=== PATIENT | female | born 1940 | race Caucasian/White ===

== ENCOUNTER 2019-07-22 20:17 | Emergency (ER) | payer MEDICARE ==
[2019-07-22 21:13] LABS: Absolute Neutrophil Ct (ANC) 6.02 (1.4-6.9); BASOPHIL % 0.6 % (0.0-0.4); Basophil (Absolute #) 0.05 (0-0.4); Eosinophil % 3.5 % (0.00-5.0); Eosinophil (Absolute #) 0.28 (0-0.5); Hematocrit 40.8 % (35-47); Hemoglobin 12.7 gm/dl (12.0-16.0); Lymphocyte (Absolute #) 1.11 (1.0-4.6); Mean Cell Volume 96.5 fl (78-100); Mean Corpuscular Hgb Concent. 31.1 g/dl (32-36); Mean Platelet Volume 10.5 fl (6-9.5); Monocyte (Absolute #) 0.45 (0.0-1.3); Monocytes % 5.7 % (0.0-12.0); Neutrophil % 76.2 % (36.0-66.0); Platelet Count 191 K/mm3 (150-450); Red Blood Count 4.23 M/mm3 (4.1-5.4); Red Cell Distribution Width 15.3 % (11.5-14.0); White Blood Count 7.9 K/mm3 (4.0-10.5)
[2019-07-22 21:20] LABS: INR 3.25 (0.8-3.0); PROTIME 37.6 SECONDS (9.95-12.35)
[2019-07-22 21:23] LABS: PTT 47.6 SECONDS (25.3-37.0)
[2019-07-22 21:25] LABS: ALBUMIN 4.1 g/dL (3.5-5.0); ALKALINE PHOSPHATASE 92 U/L (38-126); AMYLASE 78 U/L (30-110); ANION GAP 11.8 MEQ/L (5-15); BLOOD UREA NITROGEN 25 mg/dL (7-17); CHLORIDE 102 mmol/L (98-107); Calcium 8.9 mg/dL (8.4-10.2); Carbon Dioxide 32 mmol/L (22-30); Creatinine 1 0.83 mg/dL (0.52-1.04); Glucose 171 mg/dL (74-106); LIPASE 88 U/L (23-300); Potassium 4.8 mmol/L (3.5-5.1); SGOT/AST 50 U/L (14-36); SGPT/ALT 42 U/L (0-35); SODIUM 140 mmol/L (137-145); Total Protein 7.5 g/dL (6.3-8.2)
[2019-07-22] MEDS ORDERED: BACIGUENT PACKET ONE (22:39)
[2019-07-22] MEDS: BACIGUENT PACKET TP ONE (22:41)
--- NOTE | 2019-07-22 22:43 | ERPHSYRPT ---
- History of Present Illness Time Seen by Provider: 07/22/19 20:45 Source: patient Exam Limitations: no limitations Patient Subjective Stated Complaint: pt states she lost her balance and fell. states she hurt her rt arm, and shoulder. ans skinned her rt forearm Triage Nursing Assessment: pt alert and oriented, answers questions approp. pt ambulate from wheelchair to stretcher with cane and assist of 1. slow gait noted. respirations nonlabored with lungs cta. pupils equal and reacitve. bilat upper and lower strength equal. skin tear to rt arm with hematoma. Occurred: just prior to arrival Reason for Fall: lost balance Loss of Consciousness: no loss of consciousness Quality: throbbing Severity of Pain-Max: mild Severity of Pain-Current: mild Modifying Factors: Improves With: nothing Associated Symptoms (Fall): denies symptoms Allergies/Adverse Reactions: levofloxacin [From Levaquin] Allergy (Verified 07/22/19 22:40) Itching Home Medications: Unobtainable 07/22/19 [History] Hx Tetanus, Diphtheria Vaccination/Date Given: No (unknown) Hx Influenza Vaccination/Date Given: Yes Hx Pneumococcal Vaccination/Date Given: Yes Immunizations Up to Date: No - Review of Systems Constitutional: No Fever, No Chills Eyes: No Symptoms Ears, Nose, & Throat: No Symptoms Respiratory: No Cough, No Dyspnea Cardiac: No Chest Pain, No Edema, No Syncope Abdominal/Gastrointestinal: No Abdominal Pain, No Nausea, No Vomiting, No Diarrhea Genitourinary Symptoms: No Dysuria Musculoskeletal: Neck Pain, Fall, Injury Skin: Other (skin tear), No Rash Neurological: No Dizziness, No Focal Weakness, No Sensory Changes Psychological: No Symptoms Endocrine: No Symptoms All Other Systems: Reviewed and Negative - Past Medical History Pertinent Past Medical History: Yes Neurological History: No Pertinent History Cardiac History: Hypertension Respiratory History: Asthma, COPD, Emphysema, Sleep Apnea Endocrine Medical History: Diabetes Type II, Other Musculoskeletal History: Fractures, Osteoarthritis Other Medical History: open heart surgery, valve replacement, thyroid removed. - Past Surgical History Past Surgical History: Yes Cardiac: Valve Replacement Gastrointestinal: Cholecystectomy, Other Musculoskeletal: Orthopedic Surgery Other Surgical History: hx gastric bypass, bilat tka, lt hip fx - Social History Smoking Status: Never smoker Exposure to second hand smoke: No Drug Use: none Patient Lives Alone: No - Nursing Vital Signs Nursing Vital Signs: Initial Vital Signs Pulse Rate 88 11/02/19 20:29 Respiratory Rate 18 07/22/19 20:29 Blood Pressure 150/89 07/22/19 20:29 O2 Sat by Pulse Oximetry 97 07/22/19 20:29 Pain Scale Pain Intensity 8 - Carmen Coma Score Best Eye Response ([place]): (4) open spontaneously Best Verbal Response ([place]): (5) oriented Best Motor Response ([place]): (6) obeys commands [place] Total: 15 - Physical Exam General Appearance: no apparent distress, alert Head Injury: no evidence of injury Eye Exam: PERRL/EOMI ENT Exam: airway nml Neck Exam: tenderness Respiratory/Chest Exam: normal breath sounds, No chest tenderness, No respiratory distress Cardiovascular Exam: normal heart sounds, regular rate/rhythm Gastrointestinal Exam: soft, No tenderness, No distention, No guarding, No ecchymosis Back Exam: normal inspection, No vertebral tenderness Extremity Exam: normal range of motion, pelvis stable, swelling, tenderness, other (large skin tear r forearm), No deformities SpO2: 97 - Radiology Exams Right Humerus X-ray Interpretation: Interpreted by me, Reviewed by me, Negative, No Fracture, No Subluxation Right Shoulder X-ray Interpretation: Interpreted by me (spine), No Fracture Right Forearm X-ray Interpretation: Interpreted by me, Negative C-Spine X-ray Interpretation: Interpreted by me, Negative Ordered Tests: Active Orders 24 hr Category Date Time Status Wound Care STAT Care 07/22/19 22:39 Active CERVICAL SPINE (2 OR 3 VIEW) Stat Exams 07/22/19 21:56 Taken FOREARM Stat Exams 07/22/19 21:57 Taken SHOULDER Stat Exams 07/22/19 21:56 Taken AMYLASE Stat Lab 07/22/19 21:10 Completed CBC W DIFF Stat Lab 07/22/19 21:10 Completed CMP Stat Lab 07/22/19 21:10 Completed LIPASE Stat Lab 07/22/19 21:10 Completed PROTIME WITH INR Stat Lab 07/22/19 21:10 Completed PTT Stat Lab 07/22/19 21:10 Completed Medication Summary Discontinued Medications Generic Name Dose Route Start Last Admin Trade Name Freq PRN Reason Stop Dose Admin Bacitracin Zinc 0.9 gm 07/22/19 22:39 07/22/19 22:41 Baciguent Packet TP 07/22/19 22:40 0.9 gm STAT ONE Administration Bacitracin Zinc Confirm 07/22/19 22:39 Baciguent Packet Administered 07/22/19 22:40 Dose 1 gm .ROUTE .STK-MED ONE Lab/Rad Data: Laboratory Result Diagrams 07/22/19 21:10 07/22/19 21:10 Laboratory Results 07/22/19 07/22/19 07/22/19 Range/Units 21:10 21:10 21:10 WBC 7.9 (4.0-10.5) K/mm3 RBC 4.23 (4.1-5.4) M/mm3 Hgb 12.7 (12.0-16.0) gm/dl Hct 40.8 (35-47) % MCV 96.5 (78-100) fl MCH 30.0 (26-32) pg MCHC 31.1 L (32-36) g/dl RDW 15.3 H (11.5-14.0) % Plt Count 191 (150-450) K/mm3 MPV 10.5 H (6-9.5) fl Gran % 76.2 H (36.0-66.0) % Eos # (Auto) 0.28 (0-0.5) Absolute Lymphs (auto) 1.11 (1.0-4.6) Absolute Monos (auto) 0.45 (0.0-1.3) Lymphocytes % 14.0 L (24.0-44.0) % Monocytes % 5.7 (0.0-12.0) % Eosinophils % 3.5 (0.00-5.0) % Basophils % 0.6 (0.0-0.4) % Absolute Granulocytes 6.02 (1.4-6.9) Basophils # 0.05 (0-0.4) PT 37.6 H (9.95-12.35) SECONDS INR 3.25 H (0.8-3.0) APTT 47.6 H (25.3-37.0) SECONDS Sodium 140 (137-145) mmol/L Potassium 4.8 (3.5-5.1) mmol/L Chloride 102 (98-107) mmol/L Carbon Dioxide 32 H (22-30) mmol/L Anion Gap 11.8 (5-15) MEQ/L BUN 25 H (7-17) mg/dL Creatinine 0.83 (0.52-1.04) mg/dL Estimated GFR > 60.0 ML/MIN Glucose 171 H (74-106) mg/dL Calcium 8.9 (8.4-10.2) mg/dL Total Bilirubin 0.50 (0.2-1.3) mg/dL AST 50 H (14-36) U/L ALT 42 H (0-35) U/L Alkaline Phosphatase 92 (38-126) U/L Serum Total Protein 7.5 (6.3-8.2) g/dL Albumin 4.1 (3.5-5.0) g/dL Amylase 78 (30-110) U/L Lipase 88 (23-300) U/L - Progress Progress: improved - Departure Departure Disposition: Home Clinical Impression: Fall Condition: Stable Critical Care Time: No Referrals: [facility] [Primary Care Provider] - Plan of Treatment: we will dispense some [place] for pain and amoxicillin for infection Prescriptions: Amoxicillin 500 mg PO TID 7 Days #30 capsule
[2019-07-22] MEDS ORDERED: NORCO 5/325 MG ONE (22:54)
[2019-07-22 22:57] VITALS: BP 156/86; PULSE 84; O2SAT 96
[2019-07-22] MEDS: NORCO 5/325 MG PO PRN (22:57)
--- NOTE | 2019-07-23 09:41 | XRAY ---
Indication: Pain following fall. Comparison: None 3 views of the cervical spine demonstrates cervical lordotic straightening, mild osteopenia, mild/moderate C4-C7 degenerative endplate spurring with disc space narrowing, CABG surgery, and partially visualized left AICD. No acute fracture/subluxation.
--- NOTE | 2019-07-23 09:43 | XRAY ---
Indication: Pain following fall. Comparison: None 3 views of the right shoulder demonstrates osteopenia, mild/moderate right shoulder degenerative arthropathy, multilevel cervical thoracic degenerative spondylosis, CABG surgery with cardiac valve stent, and partially visualized AICD leads. No acute fracture/dislocation.
--- NOTE | 2019-07-23 09:43 | XRAY ---
Indication: Pain following fall. Comparison: None 2 views of the right forearm demonstrates osteopenia, posterior soft tissue swelling, and heavy scattered vascular calcifications. No other bony, articular, or soft tissue abnormalities.
== END 2019-07-22 23:04 | disposition home or self-care (01) ==
LOC: ED 20:17
DX: S51.811A Laceration without foreign body of right forearm, initial encounter (principal); S40.021A Contusion of right upper arm, initial encounter; W01.0XXA Fall on same level from slipping, tripping and stumbling without subsequent striking against object, initial encounter; J44.9 Chronic obstructive pulmonary disease, unspecified; J45.909 Unspecified asthma, uncomplicated; I10 Essential (primary) hypertension; G47.30 Sleep apnea, unspecified; E11.9 Type 2 diabetes mellitus without complications; M19.90 Unspecified osteoarthritis, unspecified site
CPT/HCPCS: 36415; 72040; 73030; 73090; 80053; 82150; 83690; 85025; 85610; 85730; 99284; A9270-GY

== ENCOUNTER 2020-03-09 12:40 | Emergency (ER) | payer MEDICARE ==
--- NOTE | 2020-03-09 13:38 | ERPHSYRPT ---
- History of Present Illness Time Seen by Provider: 03/09/20 13:18 Patient Subjective Stated Complaint: pt to ER with complaints of fall out of bed this morning around 0900. pt states she fell on her R side, but her legs were still in the bed. pt states she landed on a wooden box step. complains of L shoulder,arm and L ribs. denies headache or LOC. Triage Nursing Assessment: pt arrives via wheelchair. pt needed assistance into bed, pt A&Ox3. pt with mulitple bruising. no distress noted. Physician History: 79 yo was trying to reach phone this morning while lying on the bed and accidantly fell down, bent her left upper extremity , and hit hit left chest wall against the card board box .no LOC/ headache/vomiting/numbness/tingling or new focal weakness. does have chronic left UE weakness which is not any worse than usual.she is c/o pain in the left ribs/shoulder /elbow/wrist with movements. Occurred: this morning Method of Injury: fell Quality: sharpness Severity of Pain-Max: moderate Severity of Pain-Current: moderate Extremities Pain Location: shoulder: left, arm: left, elbow: left, forearm: left, wrist: left, hand: left Modifying Factors: Improves With: immobilization, movement Associated Symptoms: chest discomfort, chest pain, No dyspnea, No fever, No short of breath Allergies/Adverse Reactions: levofloxacin [From Levaquin] Allergy (Verified 03/09/20 13:21) Itching Hx Tetanus, Diphtheria Vaccination/Date Given: Yes Hx Influenza Vaccination/Date Given: Yes Hx Pneumococcal Vaccination/Date Given: Yes Immunizations Up to Date: Yes Travel Risk - International Travel Have you traveled outside of the country in past 3 weeks: No - Coronavirus Screening Are you exhibiting any of the following symptoms?: No Close contact with a COVID-19 positive Pt in past 14-21 Days: No - Review of Systems Constitutional: No Symptoms Eyes: No Symptoms Ears, Nose, & Throat: No Symptoms Respiratory: No Symptoms Cardiac: No Symptoms Abdominal/Gastrointestinal: No Symptoms Genitourinary Symptoms: No Symptoms Musculoskeletal: Arthralgias, Injury, Joint Pain Skin: No Symptoms Neurological: No Symptoms Psychological: No Symptoms Endocrine: No Symptoms Hematologic/Lymphatic: No Symptoms Immunological/Allergic: No Symptoms - Past Medical History Pertinent Past Medical History: Yes Neurological History: No Pertinent History Cardiac History: Hypertension Respiratory History: Asthma, COPD, Emphysema, Sleep Apnea Endocrine Medical History: Diabetes Type II, Other Musculoskeletal History: Fractures, Osteoarthritis Other Medical History: open heart surgery, valve replacement, thyroid removed. - Past Surgical History Past Surgical History: Yes Cardiac: Valve Replacement Gastrointestinal: Cholecystectomy, Other Musculoskeletal: Orthopedic Surgery Other Surgical History: hx gastric bypass, bilat tka, lt hip fx - Social History Smoking Status: Never smoker Exposure to second hand smoke: No Drug Use: none Patient Lives Alone: No - Female History Hx Now: No - Nursing Vital Signs Nursing Vital Signs: Initial Vital Signs Temperature 97.7 F 03/09/20 13:12 Pulse Rate 78 03/09/20 13:12 Respiratory Rate 17 03/09/20 13:12 Blood Pressure 149/88 03/09/20 13:12 O2 Sat by Pulse Oximetry 96 03/09/20 13:12 Pain Scale Pain Intensity 10 - Physical Exam General Appearance: no apparent distress, alert Eyes, Ears, Nose, Throat Exam: normal ENT inspection, pharynx normal Neck Exam: normal inspection, non-tender, supple, full range of motion Cardiovascular/Respiratory Exam: normal breath sounds, regular rate/rhythm, rib tenderness (left mid to lower), No subcutaneous emphysema, No crepitus, No decreased breath sounds, No paradoxical movements Abdominal Exam: non-tender, soft, no organomegaly Back Exam: normal inspection, No CVA tenderness Shoulder Exam: bone tenderness (left), limited ROM, pain, soft tissue tenderness Elbow/Forearm Exam: bone tenderness, pain, soft tissue tenderness, swelling Wrist Exam: bone tenderness, limited ROM, pain, soft tissue tenderness, swelling Hand Exam: normal inspection Neuro/Tendon Exam: normal sensation, normal motor functions, normal tendon functions, responds to pain, no evidence tendon injury Mental Status Exam: alert, oriented x 3, cooperative Skin Exam: normal color, abrasion SpO2 Interpretation: normal SpO2: 96 O2 Delivery: Room Air - Course Nursing assessment & vital signs reviewed: Yes Ordered Tests: Active Orders 24 hr Category Date Time Status CERVICAL SPINE WO CONTRAST [CT] Stat Exams 03/09/20 13:38 Taken CHEST WITHOUT CONTRAST [CT] Stat Exams 03/09/20 13:39 Taken ELBOW (MINIMUM 3 VIEWS) Stat Exams 03/09/20 13:41 Taken HEAD WITHOUT CONTRAST [CT] Stat Exams 03/09/20 13:38 Taken SHOULDER Stat Exams 03/09/20 13:40 Taken WRIST (MIN 3 VIEWS) Stat Exams 03/09/20 13:40 Taken Medication Summary Discontinued Medications Generic Name Dose Route Start Last Admin Trade Name Loyd PRN Reason Stop Dose Admin Hydrocodone Bitart/Acetaminophen 1 tab 03/09/20 13:42 03/09/20 13:46 [place] 5/325 Mg PO 03/09/20 13:43 1 tab STAT ONE Administration Hydrocodone Bitart/Acetaminophen Confirm 03/09/20 13:45 [place] 5/325 Mg Administered 03/09/20 13:46 Dose 1 tab .ROUTE .STK-MED ONE - Progress Progress: improved, pain not gone completely, re-examined Progress Note: feeling better after oral pain med, r/o fx dislocation left UE. negative ct chest for pneumothorax but has left 7-9th ant nondisplaced rib fx . no difficulty breathing , will treat with oral pain meds. negative CT head/cervical spines. no acute neuro findings. i believe patient has contusions upper extremity and recommended taking tylenol for pain and outpatient follow up.discusses sx/sn of worsening needing return which she seems understanding. 03/09/20 15:42 Counseled pt/family regarding: diagnosis, need for follow-up, rad results - Departure Departure Disposition: Home Clinical Impression: Contusion of left upper extremity Qualifiers: Encounter type: initial encounter Qualified Code(s): S40.022A - Contusion of left upper arm, initial encounter Scalp contusion Qualifiers: Encounter type: initial encounter Qualified Code(s): S00.03XA - Contusion of scalp, initial encounter Fall Qualifiers: Encounter type: initial encounter Qualified Code(s): W19.XXXA - Unspecified fall, initial encounter Closed rib fracture Qualifiers: Encounter type: initial encounter Rib fracture type: multiple ribs Laterality: left Qualified Code(s): S22.42XA - Multiple fractures of ribs, left side, initial encounter for closed fracture Condition: Stable Critical Care Time: No Referrals: DOCTOR,NO FAMILY [Primary Care Provider] - RADHA BROWN [ACTIVE STAFF] - Follow Up with PCP/3 days LIBRA STALLWORTH NP [NON-STAFF PHY W/O PRIVILEGES] - Follow Up with PCP/3 days Instructions: Concussion, Adult (DC), Preventing Falls, Rib Fractures in Adults Additional Instructions: take norco as needed for pain. use cane or walker to avoid fall. deep breathing exercises. apply ice . follow up with pcp/ortho for re evaluation Prescriptions: Hydrocodone/APAP 5-325 Tab^^^ [[place] 5-325 Tablet^^^] 1 tab PO Q6HPRN PRN #10 tablet MDD 6 PRN Reason: Pain
[2020-03-09] MEDS ORDERED: NORCO 5/325 MG PO ONE ×2 (13:42→15:41)
[2020-03-09] MEDS ORDERED: NORCO 5/325 MG ONE ×2 (13:45→15:46)
[2020-03-09 16:25] VITALS: BP 138/74; PULSE 68; O2SAT 95
--- NOTE | 2020-03-09 17:52 | XRAY ---
Indication: Pain following fall. Comparison: None 3 view left shoulder demonstrates mild osteopenia, mild AC degenerative arthropathy, partially visualized left AICD, partially visualized cardiac valve replacement surgery, and calcified splenic granulomas. No other bony, articular, or soft tissue abnormalities.
--- NOTE | 2020-03-09 17:52 | XRAY ---
Indication: Pain following fall. Comparison: None 3 view left elbow demonstrates mild osteopenia, mid forearm soft tissue calcified granulomas, and scattered vascular calcifications. No other bony, articular, or soft tissue abnormalities.
--- NOTE | 2020-03-09 17:54 | XRAY ---
Indication: Pain following fall. Comparison: None 3 view left wrist demonstrates mild osteopenia, mild 1st metacarpal multangular degenerative changes, and heavy scattered vascular calcifications. No other bony, articular, or soft tissue abnormalities.
--- NOTE | 2020-03-09 18:00 | XRAY ---
Indication: Pain following fall. Multiple contiguous axial images obtained through the cervical spine. Sagittal and coronal reformatted images obtained. Comparison: None Axial images negative for acute fracture, suspicious bony lesions, or spinal canal stenosis. There is mild C5-C7 degenerative endplate spurring and mild multilevel bilateral degenerative facet hypertrophy. Additional lateral axial degenerative changes. Sagittal and coronal reformatted images demonstrates cervical lordotic reversal, positional versus paraspinal spasm. C5-C7 disc space loss. C4 segment demonstrates minimal 2 mm anterolisthesis. No acute compression fracture or jumped facet. Normal-appearing craniocervical junction. Visualized noncontrasted soft tissues demonstrate minimal bilateral carotid calcifications. Impression: 1. Cervical lordotic reversal, positional versus paraspinal spasm. Negative acute fracture. 2. Multilevel degenerative spondylosis including minimal grade 1 C4 spondylolisthesis. Comment: Preliminary interpretation was made by [facility]. No critical discrepancy.
--- NOTE | 2020-03-09 18:01 | XRAY ---
Indication: Pain following fall. Multiple contiguous axial images obtained through the head without contrast. Comparison: None Age-appropriate global atrophy and moderate periventricular degenerative micro-ischemia bilaterally. No acute intracranial hemorrhage, abnormal extra-axial fluid collection, or mass effect. Fourth ventricles midline without hydrocephalus. Bony calvarium intact. Visualized paranasal sinuses and mastoid air cells are clear. Impression: Nonacute senile brain. Comment: Preliminary interpretation was made by [facility]. No critical discrepancy.
--- NOTE | 2020-03-09 18:06 | XRAY ---
Indication: Pain following fall. Multiple contiguous axial images obtained through the chest without contrast as ordered. Comparison: None Left anterior chest AICD produces beam artifact. Lungs inflated with mild scattered fibrosis/scarring greatest near the lung bases. No suspicious pulmonary mass, infiltrate, effusion, or pneumothorax. Heart is enlarged demonstrating aortic and mitral valve replacement. Aorta is mildly atherosclerotic without aneurysm. No pathologic mediastinal lymphadenopathy. Small hiatal hernia. Bony thorax demonstrates osteopenia and nondisplaced left 7-9 rib fractures anteriorly. Limited upper abdomen demonstrates cholecystectomy clips, bariatric surgery, and numerous splenic calcified granulomas. Impression: 1. Nondisplaced left 7-9 rib fractures without pneumothorax or hemothorax. 2. Cardiomegaly without CHF. 3. Incidental small hiatal hernia and evidence for old granulomatous disease. Comment: Preliminary interpretation was made by [facility]. No critical discrepancy.
== END 2020-03-09 16:25 | disposition home or self-care (01) ==
LOC: ED 12:40
DX: S40.022A Contusion of left upper arm, initial encounter (principal); S00.03XA Contusion of scalp, initial encounter; S22.42XA Multiple fractures of ribs, left side, initial encounter for closed fracture; W19.XXXA Unspecified fall, initial encounter; J44.9 Chronic obstructive pulmonary disease, unspecified; G47.30 Sleep apnea, unspecified; Z95.2 Presence of prosthetic heart valve
CPT/HCPCS: 70450; 71250; 72125; 73030; 73080; 73110; 99284; A9270-GY

== ENCOUNTER 2021-04-12 21:54 | Emergency (ER) | payer MEDICARE ==
--- NOTE | 2021-04-12 22:24 | ERPHSYRPT ---
- History of Present Illness Time Seen by Provider: 04/12/21 22:21 Source: patient Exam Limitations: no limitations Patient Subjective Stated Complaint: pt states, "I had a procedure 2 weeks ago and I'm bleeding from it and my has changed it twice today and it's st ill bleeding". Triage Nursing Assessment: pt had a procedure done to her back 2 weeks ago (pacemaker to bladder) but the dressing was bloody today and needed changed twice by her . Mod amt of bloody drainage to dressing upon arrival. Physician History: Is a 80-year-old white female who had a bladder stimulator implanted approximately 2 weeks ago she is on warfarin or Coumadin [place] due to artificial valves and during this procedure was given Lovenox. The Lovenox series has been completed and she is to from this point onward only be on Coumadin. She had some bleeding today which required to dressing changes by her . There is no active bleeding at present Timing/Duration: today, intermittent Activites at Onset: none Pain Radiation: none Severity of Pain-Max: none Severity of Pain-Current: none Prior abdominal problems: none Sexual intercourse history: non-contributory Allergies/Adverse Reactions: levofloxacin [From Levaquin] Allergy (Verified 04/12/21 22:11) Itching Home Medications: Aspirin 81 gm Chew [Baby Aspirin 81 mg Chew] 1 tab PO DAILY 04/12/21 [History] Warfarin Sodium [Coumadin] 2 mg PO HS 04/12/21 [History] Hx Tetanus, Diphtheria Vaccination/Date Given: Yes Hx Influenza Vaccination/Date Given: Yes Hx Pneumococcal Vaccination/Date Given: Yes Travel Risk - International Travel Have you traveled outside of the country in past 3 weeks: No - Coronavirus Screening Are you exhibiting any of the following symptoms?: No Close contact with a COVID-19 positive Pt in past 14-21 Days: No - Vaccine Status Have you recieved a Covid-19 vaccination: Yes 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[employer] - Vaccination Dates Date of 2cond Vaccination (if applicable): 11/21/20 - Review of Systems Constitutional: No Fever, No Chills Eyes: No Symptoms Ears, Nose, & Throat: No Symptoms Respiratory: No Cough, No Dyspnea Cardiac: No Chest Pain, No Edema, No Syncope Abdominal/Gastrointestinal: No Abdominal Pain, No Nausea, No Vomiting, No Diarrhea Genitourinary Symptoms: Other (Bleeding from wires to bladder stimulator), No Dysuria Musculoskeletal: No Back Pain, No Neck Pain Skin: No Rash Neurological: No Dizziness, No Focal Weakness, No Sensory Changes Psychological: No Symptoms Endocrine: No Symptoms All Other Systems: Reviewed and Negative - Past Medical History Pertinent Past Medical History: Yes Neurological History: No Pertinent History Cardiac History: Hypertension Respiratory History: Asthma, COPD, Emphysema, Sleep Apnea Endocrine Medical History: Diabetes Type II, Other Musculoskeletal History: Fractures, Osteoarthritis GI Medical History: No Pertinent History History: No Pertinent History Psycho-Social History: No Pertinent History Female Reproductive Disorders: No Pertinent History Other Medical History: open heart surgery, valve replacement, thyroid removed. - Past Surgical History Past Surgical History: Yes Cardiac: CABG, Cardiac Catheterization, Valve Replacement Gastrointestinal: Cholecystectomy, Other Musculoskeletal: Orthopedic Surgery Other Surgical History: hx gastric bypass, bilat tka, lt hip fx - Social History Smoking Status: Never smoker Exposure to second hand smoke: No Drug Use: none Patient Lives Alone: No - Female History Hx Now: No - Nursing Vital Signs Nursing Vital Signs: Initial Vital Signs Temperature 97.8 F 04/12/21 22:02 Pulse Rate 84 04/12/21 22:02 Respiratory Rate 20 04/12/21 22:02 Blood Pressure 122/80 04/12/21 22:02 O2 Sat by Pulse Oximetry 97 04/12/21 22:02 Pain Scale Pain Intensity 0 - Physical Exam General Appearance: mild distress, alert Eye Exam: PERRL/EOMI, eyes nml inspection Ears, Nose, Throat Exam: normal ENT inspection, TMs normal, pharynx normal, moist mucous membranes Neck Exam: normal inspection, non-tender, supple, full range of motion Respiratory Exam: normal breath sounds, lungs clear, No respiratory distress Cardiovascular Exam: regular rate/rhythm, normal heart sounds, normal peripheral pulses Gastrointestinal/Abdomen Exam: soft, No tenderness, No mass Back Exam: normal inspection, normal range of motion, other (Bladder stimulator wires are seen at the point of entry there is a Band-Aid no active bleeding the Band-Aid had been placed by her .), No CVA tenderness, No vertebral tenderness Extremity Exam: normal inspection, normal range of motion, pelvis stable Neurologic Exam: alert, oriented x 3, cooperative, 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, normal mood/affect, sensation nml, No motor deficits Skin Exam: normal color, warm, dry Lymphatic Exam: No adenopathy SpO2: 97 - Course Nursing assessment & vital signs reviewed: Yes Ordered Tests: Active Orders 24 hr Category Date Time Status CBC W DIFF Stat Lab 04/12/21 22:39 Completed PROTIME WITH INR Stat Lab 04/12/21 22:39 Completed PTT Stat Lab 04/12/21 22:39 Completed Lab/Rad Data: Laboratory Result Diagrams 04/12/21 22:39 Laboratory Results 04/12/21 04/12/21 Range/Units 22:39 22:39 WBC 8.7 (4.0-10.5) K/mm3 RBC 4.20 (4.1-5.4) M/mm3 Hgb 11.0 L (12.0-16.0) gm/dl Hct 37.0 (35-47) % MCV 88.1 (78-100) fl MCH 26.2 (26-32) pg MCHC 29.7 L (32-36) g/dl RDW 17.1 H (11.5-14.0) % Plt Count 235 (150-450) K/mm3 MPV 10.4 (7.5-11.0) fl Gran % 69.6 H (36.0-66.0) % Eos # (Auto) 0.43 (0-0.5) Absolute Lymphs (auto) 1.47 (1.0-4.6) Absolute Monos (auto) 0.70 (0.0-1.3) Lymphocytes % 17.0 L (24.0-44.0) % Monocytes % 8.1 (0.0-12.0) % Eosinophils % 5.0 (0.00-5.0) % Basophils % 0.3 (0.0-0.4) % Absolute Granulocytes 6.04 (1.4-6.9) Basophils # 0.03 (0-0.4) PT 19.0 H (9.4-12.5) SECONDS INR 1.61 (0.8-3.0) APTT 37.9 H (25.1-36.5) SECONDS - Progress Progress: improved Air Movement: good Blood Culture(s) Obtained: No Antibiotics given: No - Departure Departure Disposition: Home Clinical Impression: Postoperative bleeding from incision Condition: Stable Critical Care Time: No Referrals: INDER AUGUSTINE DO [Primary Care Provider] - Instructions: Wound Care (DC) Additional Instructions: Patient instructed to take her normal dose of Coumadin in the a.m. return if any further bleeding.
[2021-04-12 22:42] LABS: Absolute Neutrophil Ct (ANC) 6.04 (1.4-6.9); BASOPHIL % 0.3 % (0.0-0.4); Basophil (Absolute #) 0.03 (0-0.4); Eosinophil (Absolute #) 0.43 (0-0.5); Lymphocyte (Absolute #) 1.47 (1.0-4.6); Mean Cell Volume 88.1 fl (78-100); Mean Corpuscular Hemoglobin 26.2 pg (26-32); Mean Corpuscular Hgb Concent. 29.7 g/dl (32-36); Mean Platelet Volume 10.4 fl (7.5-11.0); Monocytes % 8.1 % (0.0-12.0); Neutrophil % 69.6 % (36.0-66.0); Platelet Count 235 K/mm3 (150-450); Red Cell Distribution Width 17.1 % (11.5-14.0); White Blood Count 8.7 K/mm3 (4.0-10.5)
[2021-04-12 22:49] LABS: INR 1.61 (0.8-3.0)
[2021-04-12 22:52] LABS: PTT 37.9 SECONDS (25.1-36.5)
[2021-04-12 23:11] VITALS: BP 133/74; PULSE 76
[2021-04-12 23:54] VITALS: O2SAT 97
== END 2021-04-13 | disposition home or self-care (01) ==
LOC: ED 21:54
DX: N99.820 Postprocedural hemorrhage of a genitourinary system organ or structure following a genitourinary system procedure (principal); J44.9 Chronic obstructive pulmonary disease, unspecified; G47.30 Sleep apnea, unspecified; I10 Essential (primary) hypertension
CPT/HCPCS: 36415; 85025; 85610; 85730; 99283

== ENCOUNTER 2021-07-06 18:06 | Observation (INO) | payer MEDICARE ==
--- NOTE | 2021-07-06 18:29 | ERPHSYRPT ---
- History of Present Illness Source: patient Exam Limitations: no limitations Timing/Duration: today Severity: mild Associated Symptoms: denies symptoms Hx Tetanus, Diphtheria Vaccination/Date Given: Yes Hx Influenza Vaccination/Date Given: Yes Hx Pneumococcal Vaccination/Date Given: Yes <OLGA LIDIA LUNDBERG - Last Filed: 07/06/21 18:35> <STEVEKAE - Last Filed: 07/06/21 19:44> - History of Present Illness Time Seen by Provider: 07/06/21 18:26 Physician History: Patient is 80-year-old female with significant past medical history of hypertension coronary artery disease s/p defibrillator placement 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 She denies any heavy pressure type of chest pain. She also denies any shocks from her defibrillator. She denies any shortness of breath. But she complain of pain when she take a breaths. She denies fever chills nausea vomiting headache or syncopal episode. 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: [employer] - Vaccination Dates Date of 2cond Vaccination (if applicable): 11/21/20 <OLGA LIDIA LUNDBERG - Last Filed: 07/06/21 18:35> - Review of Systems Constitutional: No Fever, No Chills Eyes: No Symptoms Ears, Nose, & Throat: No Symptoms Respiratory: No Cough, No Dyspnea, No Dyspnea on Exertion (MEJIA) Cardiac: Other (left upper chest wall pain), No Chest Pain, No Edema, No Syncope Abdominal/Gastrointestinal: No Abdominal Pain, No Nausea, No Vomiting, No Diarrhea Genitourinary Symptoms: No Dysuria Musculoskeletal: No Back Pain, No Neck Pain Skin: No Rash Neurological: No Dizziness, No Focal Weakness, No Sensory Changes Psychological: No Symptoms Endocrine: No Symptoms All Other Systems: Reviewed and Negative <TAMIKA, - Last Filed: 07/06/21 18:35> - Past Medical History Pertinent Past Medical History: Yes Neurological History: No Pertinent History Cardiac History: Hypertension Respiratory History: Asthma, COPD, Emphysema, Sleep Apnea Endocrine Medical History: Diabetes Type II, Other Musculoskeletal History: Fractures, Osteoarthritis GI Medical History: No Pertinent History History: No Pertinent History Psycho-Social History: No Pertinent History Female Reproductive Disorders: No Pertinent History Other Medical History: open heart surgery, valve replacement, thyroid removed. - Past Surgical History Past Surgical History: Yes Cardiac: CABG, Cardiac Catheterization, Valve Replacement Gastrointestinal: Cholecystectomy, Other Musculoskeletal: Orthopedic Surgery Other Surgical History: hx gastric bypass, bilat tka, lt hip fx - Social History Smoking Status: Never smoker Exposure to second hand smoke: No Drug Use: none Patient Lives Alone: No <TAMIKA, - Last Filed: 07/06/21 18:35> - Physical Exam General Appearance: no apparent distress, alert Eye Exam: PERRL/EOMI, eyes nml inspection Ears, Nose, Throat Exam: normal ENT inspection, TMs normal, pharynx normal, moist mucous membranes Neck Exam: normal inspection, non-tender, supple, full range of motion Respiratory Exam: normal breath sounds, chest tenderness (left upper chest), other, No respiratory distress Cardiovascular Exam: regular rate/rhythm, normal heart sounds, normal peripheral pulses Gastrointestinal/Abdomen Exam: soft, normal bowel sounds, No tenderness, No mass Back Exam: normal inspection, normal range of motion, No CVA tenderness, No vertebral tenderness Extremity Exam: normal inspection, normal range of motion, pelvis stable Neurologic Exam: alert, oriented x 3, cooperative, normal mood/affect, nml cerebellar function, nml station & gait, sensation nml, No motor deficits Skin Exam: normal color, warm, dry, No rash Lymphatic Exam: No adenopathy <TAMIKA, - Last Filed: 07/06/21 18:35> - Nursing Vital Signs Nursing Vital Signs: Initial Vital Signs Temperature 97 F 07/06/21 18:16 Pulse Rate 85 07/06/21 18:16 Respiratory Rate 20 07/06/21 18:16 Blood Pressure 152/100 07/06/21 18:16 O2 Sat by Pulse Oximetry 97 07/06/21 18:16 Pain Scale Pain Intensity 8 Vital Signs Temp 97 F 07/06/21 18:16 Pulse 85 07/06/21 18:16 Resp 20 07/06/21 18:16 BP 152/100 07/06/21 18:16 Pulse Ox 97 07/06/21 18:16 Intake & Output 07/05/21 07/06/21 07/06/21 23:59 11:59 23:59 Weight 109.2 kg (TAMIKA,OLGA LIDIA) - Course Nursing assessment & vital signs reviewed: Yes - Radiology Exams Chest X-ray Interpretation: Reviewed by me <TAMIKA,OLGA LIDIA - Last Filed: 07/06/21 18:35> Ordered Tests: Active Orders 24 hr Category Date Time Status EKG-ER Only STAT Care 07/06/21 18:17 Active CHEST 1 VIEW (PORTABLE) Stat Exams 07/06/21 18:50 Taken CHEST WITHOUT CONTRAST [CT] Routine Exams 07/06/21 19:14 Taken CBC W DIFF Stat Lab 07/06/21 18:34 Completed CMP Stat Lab 07/06/21 18:34 Completed Calcium, Ionized Stat Lab 07/06/21 19:25 Completed MAG [MAGNESIUM] Stat Lab 07/06/21 19:20 Completed NT PRO BNP Stat Lab 07/06/21 18:34 Completed PHOSPHOROUS Stat Lab 07/06/21 19:20 Completed TROPONIN Q3H Lab 07/06/21 18:34 Completed TROPONIN Q3H Lab 07/06/21 21:30 Ordered TROPONIN Q3H Lab 07/07/21 00:30 Ordered TROPONIN Q3H Lab 07/07/21 03:30 Ordered TROPONIN Q3H Lab 07/07/21 06:30 Ordered Lab/Rad Data: Laboratory Result Diagrams 07/06/21 18:34 07/06/21 18:34 Laboratory Results 07/06/21 07/06/21 07/06/21 Range/Units 19:25 19:20 19:20 WBC (4.0-10.5) K/mm3 RBC (4.1-5.4) M/mm3 Hgb (12.0-16.0) gm/dl Hct (35-47) % MCV (78-100) fl MCH (26-32) pg MCHC (32-36) g/dl RDW (11.5-14.0) % Plt Count (150-450) K/mm3 MPV (7.5-11.0) fl Gran % (36.0-66.0) % Eos # (Auto) (0-0.5) Absolute Lymphs (auto) (1.0-4.6) Absolute Monos (auto) (0.0-1.3) Lymphocytes % (24.0-44.0) % Monocytes % (0.0-12.0) % Eosinophils % (0.00-5.0) % Basophils % (0.0-0.4) % Absolute Granulocytes (1.4-6.9) Basophils # (0-0.4) Ionized Calcium 0.75 L* (1.12-1.32) mmol/L Sodium (137-145) mmol/L Potassium (3.5-5.1) mmol/L Chloride (98-107) mmol/L Carbon Dioxide (22-30) mmol/L Anion Gap (5-15) MEQ/L BUN (7-17) mg/dL Creatinine (0.52-1.04) mg/dL Estimated GFR ML/MIN Glucose (74-106) mg/dL Calcium (8.4-10.2) mg/dL Phosphorus 5.3 H (2.5-4.5) mg/dL Magnesium 1.7 (1.6-2.3) mg/dL Total Bilirubin (0.2-1.3) mg/dL AST (14-36) U/L ALT (0-35) U/L Alkaline Phosphatase (38-126) U/L Troponin I (0.000-0.034) ng/mL NT-Pro-B Natriuret Pep (0-1800) pg/mL Serum Total Protein (6.3-8.2) g/dL Albumin (3.5-5.0) g/dL 07/06/21 07/06/21 07/06/21 Range/Units 18:34 18:34 18:34 WBC 9.3 (4.0-10.5) K/mm3 RBC 4.67 (4.1-5.4) M/mm3 Hgb 11.4 L (12.0-16.0) gm/dl Hct 38.4 (35-47) % MCV 82.2 (78-100) fl MCH 24.4 L (26-32) pg MCHC 29.7 L (32-36) g/dl RDW 19.8 H (11.5-14.0) % Plt Count 273 (150-450) K/mm3 MPV 10.1 (7.5-11.0) fl Gran % 81.5 H (36.0-66.0) % Eos # (Auto) 0.13 (0-0.5) Absolute Lymphs (auto) 0.98 L (1.0-4.6) Absolute Monos (auto) 0.56 (0.0-1.3) Lymphocytes % 10.5 L (24.0-44.0) % Monocytes % 6.0 (0.0-12.0) % Eosinophils % 1.4 (0.00-5.0) % Basophils % 0.6 (0.0-0.4) % Absolute Granulocytes 7.56 H (1.4-6.9) Basophils # 0.06 (0-0.4) Ionized Calcium (1.12-1.32) mmol/L Sodium 137 (137-145) mmol/L Potassium 3.7 (3.5-5.1) mmol/L Chloride 101 (98-107) mmol/L Carbon Dioxide 26 (22-30) mmol/L Anion Gap 14.2 (5-15) MEQ/L BUN 21 H (7-17) mg/dL Creatinine 0.90 (0.52-1.04) mg/dL Estimated GFR > 60.0 ML/MIN Glucose 160 H (74-106) mg/dL Calcium 6.0 L (8.4-10.2) mg/dL Phosphorus (2.5-4.5) mg/dL Magnesium (1.6-2.3) mg/dL Total Bilirubin 1.20 (0.2-1.3) mg/dL AST 38 H (14-36) U/L ALT 31 (0-35) U/L Alkaline Phosphatase 127 H (38-126) U/L Troponin I 0.015 (0.000-0.034) ng/mL NT-Pro-B Natriuret Pep 56738 H (0-1800) pg/mL Serum Total Protein 6.6 (6.3-8.2) g/dL Albumin 3.7 (3.5-5.0) g/dL - Progress Progress: unchanged Discussed with : Fredis <KAE WILSON - Last Filed: 07/06/21 19:44> <OLGA LIDIA LUNDBERG - Last Filed: 07/06/21 18:35> - Departure Departure Disposition: Observation Critical Care Time: No <KAE WILSON - Last Filed: 07/06/21 19:44> - Departure Clinical Impression: Chest wall contusion, Hypocalcemia Condition: Fair Referrals: INDER AUGUSTINE DO [Primary Care Provider] -
[2021-07-06 18:37] LABS: Absolute Neutrophil Ct (ANC) 7.56 (1.4-6.9); BASOPHIL % 0.6 % (0.0-0.4); Basophil (Absolute #) 0.06 (0-0.4); Eosinophil % 1.4 % (0.00-5.0); Eosinophil (Absolute #) 0.13 (0-0.5); Hematocrit 38.4 % (35-47); Hemoglobin 11.4 gm/dl (12.0-16.0); Lymphocyte (Absolute #) 0.98 (1.0-4.6); Lymphocytes % 10.5 % (24.0-44.0); Mean Cell Volume 82.2 fl (78-100); Mean Corpuscular Hemoglobin 24.4 pg (26-32); Mean Corpuscular Hgb Concent. 29.7 g/dl (32-36); Mean Platelet Volume 10.1 fl (7.5-11.0); Monocyte (Absolute #) 0.56 (0.0-1.3); Neutrophil % 81.5 % (36.0-66.0); Platelet Count 273 K/mm3 (150-450); Red Blood Count 4.67 M/mm3 (4.1-5.4); Red Cell Distribution Width 19.8 % (11.5-14.0); White Blood Count 9.3 K/mm3 (4.0-10.5)
[2021-07-06 18:54] LABS: ALBUMIN 3.7 g/dL (3.5-5.0); ALKALINE PHOSPHATASE 127 U/L (38-126); ANION GAP 14.2 MEQ/L (5-15); BLOOD UREA NITROGEN 21 mg/dL (7-17); CHLORIDE 101 mmol/L (98-107); Carbon Dioxide 26 mmol/L (22-30); EST GLOMERULAR FILTRATION RATE > 60.0 ML/MIN; Glucose 160 mg/dL (74-106); NT PRO BNP 25500 pg/mL (0-1800); Potassium 3.7 mmol/L (3.5-5.1); SGOT/AST 38 U/L (14-36); SGPT/ALT 31 U/L (0-35); SODIUM 137 mmol/L (137-145); Total Protein 6.6 g/dL (6.3-8.2)
[2021-07-06] MEDS ORDERED: Calcium Gluconate 10% 1000 MG IV ONE ×3 (19:54→23:43)
[2021-07-06 23:27] LABS: INR 2.03 (0.8-3.0); PROTIME 23.9 SECONDS (9.4-12.5)
[2021-07-06] MEDS ORDERED: Sodium Chloride 0.9% 100 ML BAG 100 ML ONE (23:38)
[2021-07-06] MEDS ORDERED: TYLENOL EXTRA STRENGTH 500 MG ONE (23:58)
[2021-07-06] MEDS: Lasix 40 MG PO SCH (23:59)
[2021-07-07] MEDS: Lasix 40 MG PO SCH ×3 (00:01→18:17)
[2021-07-07] MEDS: Coumadin 1 MG PO SCH ×2 (00:01→18:17)
[2021-07-07] MEDS: Calcium 500MG W/Vit D Tablet PO SCH ×4 (00:01→23:07)
[2021-07-07] MEDS: TYLENOL EXTRA STRENGTH 500 MG PO PRN (00:02)
[2021-07-07 02:38] LABS: Appearance CLOUDY (CLEAR); Bacteria MANY /HPF (NEGATIVE); Bilirubin NEGATIVE (NEGATIVE); Blood SMALL Ery/ul (0-5); Epithelial Cells RARE /HPF (FEW); Glucose NEGATIVE (NEGATIVE); Hyaline Casts 0-2 /LPF (0-2); Ketones NEGATIVE (NEGATIVE); Leukocyte Esterase MODERATE (NEGATIVE); Mucus SLIGHT /HPF (NEGATIVE); Nitrite NEGATIVE (NEGATIVE); Protein,Urine Dip >=500 (Negative); Specific Gravity 1.022 (1.005-1.025); Urobilinogen 4 mg/dL (0-1); WBC >100 /HPF (0-5)
[2021-07-07 05:27] LABS: Absolute Neutrophil Ct (ANC) 7.73 (1.4-6.9); BASOPHIL % 0.6 % (0.0-0.4); Basophil (Absolute #) 0.06 (0-0.4); Eosinophil % 1.2 % (0.00-5.0); Eosinophil (Absolute #) 0.12 (0-0.5); Hematocrit 38.3 % (35-47); Hemoglobin 11.2 gm/dl (12.0-16.0); Lymphocyte (Absolute #) 1.17 (1.0-4.6); Mean Cell Volume 82.2 fl (78-100); Mean Corpuscular Hgb Concent. 29.2 g/dl (32-36); Mean Platelet Volume 10.6 fl (7.5-11.0); Monocyte (Absolute #) 0.65 (0.0-1.3); Monocytes % 6.7 % (0.0-12.0); Neutrophil % 79.5 % (36.0-66.0); Platelet Count 261 K/mm3 (150-450); Red Blood Count 4.66 M/mm3 (4.1-5.4); Red Cell Distribution Width 19.8 % (11.5-14.0); White Blood Count 9.7 K/mm3 (4.0-10.5)
[2021-07-07 05:48] LABS: INR 2.13 (0.8-3.0); PROTIME 25.1 SECONDS (9.4-12.5)
[2021-07-07 05:54] LABS: ALBUMIN 3.5 g/dL (3.5-5.0); ALKALINE PHOSPHATASE 117 U/L (38-126); ANION GAP 13.6 MEQ/L (5-15); BLOOD UREA NITROGEN 22 mg/dL (7-17); CHLORIDE 101 mmol/L (98-107); Calcium 6.3 mg/dL (8.4-10.2); Carbon Dioxide 26 mmol/L (22-30); Creatinine 1 0.91 mg/dL (0.52-1.04); EST GLOMERULAR FILTRATION RATE > 60.0 ML/MIN; Glucose 139 mg/dL (74-106); PREALBUMIN 14.18 mg/dL (17.6-36.0); Potassium 3.9 mmol/L (3.5-5.1); SGOT/AST 43 U/L (14-36); SGPT/ALT 35 U/L (0-35); SODIUM 137 mmol/L (137-145); Total Protein 6.5 g/dL (6.3-8.2)
--- NOTE | 2021-07-07 08:42 | XRAY ---
Indication: Left chest wall pain following fall. Multiple contiguous axial images obtained through the chest without contrast. Comparison: March 09, 2020. Left AICD again produces beam artifact. Lungs demonstrate new tiny bilateral effusions with minimal dependent atelectasis. No suspicious pulmonary mass, infiltrate, or pneumothorax. Heart remains enlarged again with aortic and mitral valve replacement. Aorta remains mildly arteriosclerotic without aneurysm. No pathologic mediastinal lymphadenopathy. Bony thorax again demonstrates osteopenia, minimal degenerative changes throughout the spine, and sternotomy wires. New enlargement of the left pectoralis muscle presumed posttraumatic. Limited upper abdomen again demonstrates cholecystotomy clips, bariatric surgery, and numerous splenic calcified granulomas. Impression: 1. Again cardiomegaly with new tiny bilateral effusions. Rule out mild/early cardiac decompensation. 2. New enlargement of the left pectoralis muscle presumed posttraumatic. 3. Again postsurgical changes, chronic bony findings, and old granulomatous disease. Comment: Preliminary interpretation made by [facility]. No critical discrepancy.
--- NOTE | 2021-07-07 08:44 | XRAY ---
Indication: Left chest wall pain following fall. Comparison: November 14, 2018. Portable chest again demonstrates cardiothoracic surgery with left AICD. Heart now enlarged with new tiny bibasilar effusions, possible mild/early cardiac decompensation. Bony thorax intact again with mild osteopenia and degenerative changes.
[2021-07-07] MEDS: ECOTRIN 81 MG PO SCH (09:14)
[2021-07-07] MEDS: Klor Con 10 MEQ PO SCH ×4 (09:14→23:07)
[2021-07-07] MEDS: Zestril 5 MG PO SCH (09:14)
[2021-07-07] MEDS: DESYREL 50 MG PO SCH (09:15)
[2021-07-07] MEDS: MAG-OX 400 PO SCH (09:15)
[2021-07-07] MEDS: SYNTHROID 150 MCG PO SCH (09:15)
[2021-07-07] MEDS: Coreg 6.25 MG PO SCH ×3 (09:15→23:07)
[2021-07-07] MEDS: ZOLOFT 50 MG TABLET PO SCH (09:15)
[2021-07-07] MEDS: ZOCOR 20MG PO SCH (09:15)
[2021-07-07] MEDS: MYRBETRIQ PO SCH (09:16)
[2021-07-07] MEDS: NON-FORMULARY ITEM PO SCH (09:16)
[2021-07-07] MEDS ORDERED: Rocephin 500 MG INJ** 500 MG in Sodium Chloride 0.9% 100 ML BAG 100 ML IV SCH (09:30)
[2021-07-07] MEDS ORDERED: Calcium Gluconate 10% 1000 MG IV ONE (09:33)
[2021-07-07] MEDS ORDERED: NON-FORMULARY ITEM (Calcitriol [Calcitriol] 0.5 MCG Capsule) PO SCH (10:00)
[2021-07-07] MEDS ORDERED: NON-FORMULARY ITEM (Mirabegron [Myrbetriq] 50 MG Tab.Er.24h) PO SCH (10:00)
[2021-07-07] MEDS ORDERED: NON-FORMULARY ITEM (Rosuvastatin Calcium [Crestor] 10 MG Tablet) PO SCH (10:00)
[2021-07-07] MEDS ORDERED: ALENDRONATE SODIUM 10 MG PO SCH (10:00)
[2021-07-07] MEDS ORDERED: NON-FORMULARY ITEM (Lisinopril [Zestril] 2.5 MG Tablet) PO SCH (10:00)
[2021-07-07] MEDS ORDERED: BABY ASPIRIN 81 MG CHEW PO SCH (10:00)
[2021-07-07] MEDS ORDERED: SODIUM CHLORIDE 0.9% IV ONE ×2 (11:00)
[2021-07-07] MEDS ORDERED: CALCIUM CHLORIDE IV ONE (11:00)
[2021-07-07] MEDS ORDERED: CALCIUM GLUCONATE IV ONE (11:00)
[2021-07-07] MEDS: Rocephin 500 MG INJ** 500 MG in Sodium Chloride 0.9% 100 ML BAG 100 ML IV SCH (12:19)
--- NOTE | 2021-07-07 13:22 | PCM.HP ---
History of Present Illness - Chief Complaint Chief Complaint: Chest Wall Contusion, Hypocalcemia History of Present Illness: is a 80 year old female with PMHx HTN,CAD S/P defib placement, CHF.Hypothyroid,Hypoparathyroidism. Patient is noncompliant with meds Lasix and Calcium. She presented to ER after a fall where she landed left chest on the bar of her walker.Calcium was low=6.0 and BNP = 25,500. TSH =12. She has 3+/4 pitting edema.She is admitted to [facility] and agrees to a Rehab stay at [facility]. - Review of Systems Constitutional: Fatigue Eyes: No Symptoms Ears, Nose, & Throat: No Symptoms Respiratory: Other (MEJIA,denies productive cough) Cardiac: Edema, Other (left chest wall pain after a fall) Abdominal/Gastrointestinal: No Symptoms Musculoskeletal: Fall (see HPI) Skin: No Symptoms Neurological: No Symptoms Medications & Allergies Home Medications: Home Medication List Aspirin 81 gm Chew [Baby Aspirin 81 mg Chew] 1 tab PO DAILY 04/12/21 [History Confirmed 07/06/21] Warfarin Sodium [Coumadin] 2 mg PO HS 04/12/21 [History Confirmed 07/06/21] Alendronate Sodium [Fosamax] 1 tab PO DAILY 07/06/21 [History Confirmed 07/06/21] Aspirin 81 tab PO DAILY 07/06/21 [History Confirmed 07/06/21] Calcitriol 0.5 mcg PO DAILY 07/06/21 [History Confirmed 07/06/21] Calcium Carbonate/Vitamin D3 [Calcium 500 + Vit D 200 Tablet] 1 tab PO TID 07/06/21 [History Confirmed 07/06/21] Carvedilol 6.25 mg [Coreg 6.25 MG] 6.25 mg PO BID 07/06/21 [History Confirmed 07/06/21] Ergocalciferol (Vitamin D2) [Vitamin D] 50,000 unit PO DAILY 07/06/21 [History Confirmed 07/06/21] Furosemide 40 mg [Lasix 40 MG] 40 mg PO BID 07/06/21 [History Confirmed 07/06/21] Levothyroxine Sodium 150 Mcg [Synthroid 150 Mcg] 150 mcg PO DAILY 07/06/21 [History Confirmed 07/06/21] Magnesium Oxide 400 mg [Mag-Ox 400] 400 mg PO DAILY 07/06/21 [History Confirmed 07/06/21] Mirabegron [Myrbetriq] 50 mg PO DAILY 07/06/21 [History Confirmed 07/06/21] Potassium Chloride 20 meq PO TID 07/06/21 [History Confirmed 07/06/21] Rosuvastatin Calcium [Crestor] 10 mg PO DAILY 07/06/21 [History Confirmed 07/06/21] Sertraline HCl 50 mg [Zoloft 50 mg Tablet] 50 mg PO DAILY 07/06/21 [History Confirmed 07/06/21] Trazodone HCl 50 mg [Desyrel 50 mg] 50 mg PO DAILY 07/06/21 [History Confirmed 07/06/21] lisinopriL [Zestril] 2.5 mg PO DAILY 07/06/21 [History Confirmed 07/06/21] Allergies/Adverse Reactions: Allergies Allergy/AdvReac Type Severity Reaction Status Date / Time levofloxacin [From Levaquin] Allergy Itching Verified 07/06/21 18:26 - Past Medical History Past Medical History: Yes Neurological History: Peripheral Neuropathy ENT History: Cataracts Cardiac History: Arrhythmia, Congestive Heart Failure, Coronary Artery Disease, Hypertension Respiratory History: Asthma, CHF, COPD, Pneumonia, Sleep Apnea Endocrine Medical History: Diabetes Type II, Hypothyroidism Musculoskelatal History: Arthritis, Fractures, Osteoarthritis GI Medical History: No Pertinent History History: No Pertinent History Pyscho-Social History: Anxiety, Depression Reproductive Disorders: No Pertinent History Comment: open heart surgery, valve replacement, thyroid removed. - Past Surgical History Past Surgical History: Yes Neuro Surgical History: No Pertinent History Cardiac History: CABG, Cardiac Catheterization, Cardiac Stent, Internal Defibrillator Respiratory Surgery: Chest Surgery GI Surgical History: Cholecystectomy, Other Musculskeletal Surgical Hx: Joint Replacement Female Surgical History: Hysterectomy Other Surgical History: Bilat knee Replacement - Social History Smoking Status: Never smoker Exposure to second hand smoke: No Alcohol: Rarely Drug Use: none - Physical Exam Vital Signs: Vital Signs - 24 hr Temp Pulse Resp BP Pulse Ox 07/07/21 12:00 97.9 F 80 18 137/69 100 07/07/21 08:00 17 07/07/21 07:45 97.7 F 77 17 135/70 99 07/07/21 07:28 99 07/07/21 04:00 18 07/07/21 03:59 97.3 F 78 18 134/82 99 07/07/21 00:00 97.7 F 89 19 137/87 96 07/06/21 22:17 97.7 F 89 19 137/87 96 07/06/21 20:09 87 122/83 94 L 07/06/21 19:48 96 07/06/21 19:18 87 129/100 98 07/06/21 18:16 97 F 85 20 152/100 97 General Appearance: no apparent distress (up to bedside commode with 1 assist) Neurologic Exam: alert, oriented x 3, cooperative, rotor winder II-XII nml as tested, normal mood/affect, other (no focal neurologic changes) Ears, Nose, Throat Exam: normal ENT inspection Neck Exam: other (S/P thyroidectomy) Respiratory Exam: chest tenderness (left), diminished breath sounds Cardiovascular Exam: other (paced) Gastrointestinal/Abdomen Exam: soft (nontender) Back Exam: CVA tenderness (right) Extremity Exam: other (edema3+/4 knee down) Skin Exam: warm, dry, pale Wound Assessment: Skin/Wound Assessment Wound/Incision Assessment Start: 07/06/21 22:55 Text: Status: Active Freq: Q6H Protocol: Document 07/07/21 10:00 TN (Rec: 07/07/21 10:51 TN [id number]) Wound/Incision Assessment Lower Medial Abdomen Wound Assessment Shift Assessment Wound Type Abrasion Wound Stage Non Pressure Wound Dressing Status Dry & Intact Drainage Amount None Drainage Odor None/Absent General Appearance Clean/Dry Surrounding Tissue [place] Primary Dressing Gauze Pads Results - Labs Lab/Micro Results: Lab Results-Last 24 Hours 07/06/21 07/06/21 07/06/21 Range/Units 18:34 18:34 18:34 WBC 9.3 (4.0-10.5) K/mm3 RBC 4.67 (4.1-5.4) M/mm3 Hgb 11.4 L (12.0-16.0) gm/dl Hct 38.4 (35-47) % MCV 82.2 (78-100) fl MCH 24.4 L (26-32) pg MCHC 29.7 L (32-36) g/dl RDW 19.8 H (11.5-14.0) % Plt Count 273 (150-450) K/mm3 MPV 10.1 (7.5-11.0) fl Gran % 81.5 H (36.0-66.0) % Eos # (Auto) 0.13 (0-0.5) Absolute Lymphs (auto) 0.98 L (1.0-4.6) Absolute Monos (auto) 0.56 (0.0-1.3) Lymphocytes % 10.5 L (24.0-44.0) % Monocytes % 6.0 (0.0-12.0) % Eosinophils % 1.4 (0.00-5.0) % Basophils % 0.6 (0.0-0.4) % Absolute Granulocytes 7.56 H (1.4-6.9) Basophils # 0.06 (0-0.4) PT (9.4-12.5) SECONDS INR (0.8-3.0) Ionized Calcium (1.12-1.32) mmol/L Sodium 137 (137-145) mmol/L Potassium 3.7 (3.5-5.1) mmol/L Chloride 101 (98-107) mmol/L Carbon Dioxide 26 (22-30) mmol/L Anion Gap 14.2 (5-15) MEQ/L BUN 21 H (7-17) mg/dL Creatinine 0.90 (0.52-1.04) mg/dL Estimated GFR > 60.0 ML/MIN Glucose 160 H (74-106) mg/dL POC Glucometer (74 to 106) mg/dL Calcium 6.0 L (8.4-10.2) mg/dL Phosphorus (2.5-4.5) mg/dL Magnesium (1.6-2.3) mg/dL Total Bilirubin 1.20 (0.2-1.3) mg/dL AST 38 H (14-36) U/L ALT 31 (0-35) U/L Alkaline Phosphatase 127 H (38-126) U/L Troponin I 0.015 (0.000-0.034) ng/mL NT-Pro-B Natriuret Pep 57783 H (0-1800) pg/mL Serum Total Protein 6.6 (6.3-8.2) g/dL Albumin 3.7 (3.5-5.0) g/dL Prealbumin (17.6-36.0) mg/dL 25-OH Vitamin D Total (30-100) ng/mL Urine Color (YELLOW) Urine Appearance (CLEAR) Urine pH (5-6) Ur Specific [place] (1.005-1.025) Urine Protein (Negative) Urine Ketones (NEGATIVE) Urine Blood (0-5) Arya/ul Urine Nitrite (NEGATIVE) Urine Bilirubin (NEGATIVE) Urine Urobilinogen (0-1) mg/dL Ur Leukocyte Esterase (NEGATIVE) Urine WBC (Auto) (0-5) /HPF Urine RBC (Auto) (0-2) /HPF U Hyaline Cast (Auto) (0-2) /LPF U Epithel Cells (Auto) (FEW) /HPF Urine Bacteria (Auto) (NEGATIVE) /HPF Urine Mucus (Auto) (NEGATIVE) /HPF Urine Culture Reflexed (NO) Urine Glucose (NEGATIVE) mg/dL SARS-CoV-2 (PCR) (NEGATIVE) 07/06/21 07/06/21 07/06/21 Range/Units 18:34 19:20 19:20 WBC (4.0-10.5) K/mm3 RBC (4.1-5.4) M/mm3 Hgb (12.0-16.0) gm/dl Hct (35-47) % MCV (78-100) fl MCH (26-32) pg MCHC (32-36) g/dl RDW (11.5-14.0) % Plt Count (150-450) K/mm3 MPV (7.5-11.0) fl Gran % (36.0-66.0) % Eos # (Auto) (0-0.5) Absolute Lymphs (auto) (1.0-4.6) Absolute Monos (auto) (0.0-1.3) Lymphocytes % (24.0-44.0) % Monocytes % (0.0-12.0) % Eosinophils % (0.00-5.0) % Basophils % (0.0-0.4) % Absolute Granulocytes (1.4-6.9) Basophils # (0-0.4) PT 23.9 H (9.4-12.5) SECONDS INR 2.03 (0.8-3.0) Ionized Calcium (1.12-1.32) mmol/L Sodium (137-145) mmol/L Potassium (3.5-5.1) mmol/L Chloride (98-107) mmol/L Carbon Dioxide (22-30) mmol/L Anion Gap (5-15) MEQ/L BUN (7-17) mg/dL Creatinine (0.52-1.04) mg/dL Estimated GFR ML/MIN Glucose (74-106) mg/dL POC Glucometer (74 to 106) mg/dL Calcium (8.4-10.2) mg/dL Phosphorus 5.3 H (2.5-4.5) mg/dL Magnesium 1.7 (1.6-2.3) mg/dL Total Bilirubin (0.2-1.3) mg/dL AST (14-36) U/L ALT (0-35) U/L Alkaline Phosphatase (38-126) U/L Troponin I (0.000-0.034) ng/mL NT-Pro-B Natriuret Pep (0-1800) pg/mL Serum Total Protein (6.3-8.2) g/dL Albumin (3.5-5.0) g/dL Prealbumin (17.6-36.0) mg/dL 25-OH Vitamin D Total (30-100) ng/mL Urine Color (YELLOW) Urine Appearance (CLEAR) Urine pH (5-6) Ur Specific [place] (1.005-1.025) Urine Protein (Negative) Urine Ketones (NEGATIVE) Urine Blood (0-5) Arya/ul Urine Nitrite (NEGATIVE) Urine Bilirubin (NEGATIVE) Urine Urobilinogen (0-1) mg/dL Ur Leukocyte Esterase (NEGATIVE) Urine WBC (Auto) (0-5) /HPF Urine RBC (Auto) (0-2) /HPF U Hyaline Cast (Auto) (0-2) /LPF U Epithel Cells (Auto) (FEW) /HPF Urine Bacteria (Auto) (NEGATIVE) /HPF Urine Mucus (Auto) (NEGATIVE) /HPF Urine Culture Reflexed (NO) Urine Glucose (NEGATIVE) mg/dL SARS-CoV-2 (PCR) (NEGATIVE) 07/06/21 07/06/21 07/06/21 Range/Units 19:25 19:38 21:23 WBC (4.0-10.5) K/mm3 RBC (4.1-5.4) M/mm3 Hgb (12.0-16.0) gm/dl Hct (35-47) % MCV (78-100) fl MCH (26-32) pg MCHC (32-36) g/dl RDW (11.5-14.0) % Plt Count (150-450) K/mm3 MPV (7.5-11.0) fl Gran % (36.0-66.0) % Eos # (Auto) (0-0.5) Absolute Lymphs (auto) (1.0-4.6) Absolute Monos (auto) (0.0-1.3) Lymphocytes % (24.0-44.0) % Monocytes % (0.0-12.0) % Eosinophils % (0.00-5.0) % Basophils % (0.0-0.4) % Absolute Granulocytes (1.4-6.9) Basophils # (0-0.4) PT (9.4-12.5) SECONDS INR (0.8-3.0) Ionized Calcium 0.75 L* (1.12-1.32) mmol/L Sodium (137-145) mmol/L Potassium (3.5-5.1) mmol/L Chloride (98-107) mmol/L Carbon Dioxide (22-30) mmol/L Anion Gap (5-15) MEQ/L BUN (7-17) mg/dL Creatinine (0.52-1.04) mg/dL Estimated GFR ML/MIN Glucose (74-106) mg/dL POC Glucometer (74 to 106) mg/dL Calcium (8.4-10.2) mg/dL Phosphorus (2.5-4.5) mg/dL Magnesium (1.6-2.3) mg/dL Total Bilirubin (0.2-1.3) mg/dL AST (14-36) U/L ALT (0-35) U/L Alkaline Phosphatase (38-126) U/L Troponin I 0.018 (0.000-0.034) ng/mL NT-Pro-B Natriuret Pep (0-1800) pg/mL Serum Total Protein (6.3-8.2) g/dL Albumin (3.5-5.0) g/dL Prealbumin (17.6-36.0) mg/dL 25-OH Vitamin D Total (30-100) ng/mL Urine Color (YELLOW) Urine Appearance (CLEAR) Urine pH (5-6) Ur Specific [place] (1.005-1.025) Urine Protein (Negative) Urine Ketones (NEGATIVE) Urine Blood (0-5) Arya/ul Urine Nitrite (NEGATIVE) Urine Bilirubin (NEGATIVE) Urine Urobilinogen (0-1) mg/dL Ur Leukocyte Esterase (NEGATIVE) Urine WBC (Auto) (0-5) /HPF Urine RBC (Auto) (0-2) /HPF U Hyaline Cast (Auto) (0-2) /LPF U Epithel Cells (Auto) (FEW) /HPF Urine Bacteria (Auto) (NEGATIVE) /HPF Urine Mucus (Auto) (NEGATIVE) /HPF Urine Culture Reflexed (NO) Urine Glucose (NEGATIVE) mg/dL SARS-CoV-2 (PCR) NEGATIVE (NEGATIVE) 07/07/21 07/07/21 07/07/21 Range/Units 01:38 04:20 04:20 WBC 9.7 (4.0-10.5) K/mm3 RBC 4.66 (4.1-5.4) M/mm3 Hgb 11.2 L (12.0-16.0) gm/dl Hct 38.3 (35-47) % MCV 82.2 (78-100) fl MCH 24.0 L (26-32) pg MCHC 29.2 L (32-36) g/dl RDW 19.8 H (11.5-14.0) % Plt Count 261 (150-450) K/mm3 MPV 10.6 (7.5-11.0) fl Gran % 79.5 H (36.0-66.0) % Eos # (Auto) 0.12 (0-0.5) Absolute Lymphs (auto) 1.17 (1.0-4.6) Absolute Monos (auto) 0.65 (0.0-1.3) Lymphocytes % 12.0 L (24.0-44.0) % Monocytes % 6.7 (0.0-12.0) % Eosinophils % 1.2 (0.00-5.0) % Basophils % 0.6 (0.0-0.4) % Absolute Granulocytes 7.73 H (1.4-6.9) Basophils # 0.06 (0-0.4) PT (9.4-12.5) SECONDS INR (0.8-3.0) Ionized Calcium (1.12-1.32) mmol/L Sodium 137 (137-145) mmol/L Potassium 3.9 (3.5-5.1) mmol/L Chloride 101 (98-107) mmol/L Carbon Dioxide 26 (22-30) mmol/L Anion Gap 13.6 (5-15) MEQ/L BUN 22 H (7-17) mg/dL Creatinine 0.91 (0.52-1.04) mg/dL Estimated GFR > 60.0 ML/MIN Glucose 139 H (74-106) mg/dL POC Glucometer (74 to 106) mg/dL Calcium 6.3 L (8.4-10.2) mg/dL Phosphorus (2.5-4.5) mg/dL Magnesium (1.6-2.3) mg/dL Total Bilirubin 1.20 (0.2-1.3) mg/dL AST 43 H (14-36) U/L ALT 35 (0-35) U/L Alkaline Phosphatase 117 (38-126) U/L Troponin I (0.000-0.034) ng/mL NT-Pro-B Natriuret Pep (0-1800) pg/mL Serum Total Protein 6.5 (6.3-8.2) g/dL Albumin 3.5 (3.5-5.0) g/dL Prealbumin 14.18 L (17.6-36.0) mg/dL 25-OH Vitamin D Total (30-100) ng/mL Urine Color MI[place]AYLA (YELLOW) Urine Appearance CLOUDY (CLEAR) Urine pH 5.0 (5-6) Ur Specific [place] 1.022 (1.005-1.025) Urine Protein >=500 (Negative) Urine Ketones NEGATIVE (NEGATIVE) Urine Blood SMALL (0-5) Arya/ul Urine Nitrite NEGATIVE (NEGATIVE) Urine Bilirubin NEGATIVE (NEGATIVE) Urine Urobilinogen 4 (0-1) mg/dL Ur Leukocyte Esterase MODERATE (NEGATIVE) Urine WBC (Auto) >100 (0-5) /HPF Urine RBC (Auto) 6-10 (0-2) /HPF U Hyaline Cast (Auto) 0-2 (0-2) /LPF U Epithel Cells (Auto) RARE (FEW) /HPF Urine Bacteria (Auto) MANY (NEGATIVE) /HPF Urine Mucus (Auto) SLIGHT (NEGATIVE) /HPF Urine Culture Reflexed YES (NO) Urine Glucose NEGATIVE (NEGATIVE) mg/dL SARS-CoV-2 (PCR) (NEGATIVE) 07/07/21 07/07/21 07/07/21 Range/Units 04:20 04:20 04:20 WBC (4.0-10.5) K/mm3 RBC (4.1-5.4) M/mm3 Hgb (12.0-16.0) gm/dl Hct (35-47) % MCV (78-100) fl MCH (26-32) pg MCHC (32-36) g/dl RDW (11.5-14.0) % Plt Count (150-450) K/mm3 MPV (7.5-11.0) fl Gran % (36.0-66.0) % Eos # (Auto) (0-0.5) Absolute Lymphs (auto) (1.0-4.6) Absolute Monos (auto) (0.0-1.3) Lymphocytes % (24.0-44.0) % Monocytes % (0.0-12.0) % Eosinophils % (0.00-5.0) % Basophils % (0.0-0.4) % Absolute Granulocytes (1.4-6.9) Basophils # (0-0.4) PT 25.1 H (9.4-12.5) SECONDS INR 2.13 (0.8-3.0) Ionized Calcium (1.12-1.32) mmol/L Sodium (137-145) mmol/L Potassium (3.5-5.1) mmol/L Chloride (98-107) mmol/L Carbon Dioxide (22-30) mmol/L Anion Gap (5-15) MEQ/L BUN (7-17) mg/dL Creatinine (0.52-1.04) mg/dL Estimated GFR ML/MIN Glucose (74-106) mg/dL POC Glucometer (74 to 106) mg/dL Calcium (8.4-10.2) mg/dL Phosphorus (2.5-4.5) mg/dL Magnesium 1.8 (1.6-2.3) mg/dL Total Bilirubin (0.2-1.3) mg/dL AST (14-36) U/L ALT (0-35) U/L Alkaline Phosphatase (38-126) U/L Troponin I (0.000-0.034) ng/mL NT-Pro-B Natriuret Pep (0-1800) pg/mL Serum Total Protein (6.3-8.2) g/dL Albumin (3.5-5.0) g/dL Prealbumin (17.6-36.0) mg/dL 25-OH Vitamin D Total 92.0 (30-100) ng/mL Urine Color (YELLOW) Urine Appearance (CLEAR) Urine pH (5-6) Ur Specific [place] (1.005-1.025) Urine Protein (Negative) Urine Ketones (NEGATIVE) Urine Blood (0-5) Arya/ul Urine Nitrite (NEGATIVE) Urine Bilirubin (NEGATIVE) Urine Urobilinogen (0-1) mg/dL Ur Leukocyte Esterase (NEGATIVE) Urine WBC (Auto) (0-5) /HPF Urine RBC (Auto) (0-2) /HPF U Hyaline Cast (Auto) (0-2) /LPF U Epithel Cells (Auto) (FEW) /HPF Urine Bacteria (Auto) (NEGATIVE) /HPF Urine Mucus (Auto) (NEGATIVE) /HPF Urine Culture Reflexed (NO) Urine Glucose (NEGATIVE) mg/dL SARS-CoV-2 (PCR) (NEGATIVE) 07/07/21 07/07/21 07/07/21 Range/Units 05:15 07:17 11:59 WBC (4.0-10.5) K/mm3 RBC (4.1-5.4) M/mm3 Hgb (12.0-16.0) gm/dl Hct (35-47) % MCV (78-100) fl MCH (26-32) pg MCHC (32-36) g/dl RDW (11.5-14.0) % Plt Count (150-450) K/mm3 MPV (7.5-11.0) fl Gran % (36.0-66.0) % Eos # (Auto) (0-0.5) Absolute Lymphs (auto) (1.0-4.6) Absolute Monos (auto) (0.0-1.3) Lymphocytes % (24.0-44.0) % Monocytes % (0.0-12.0) % Eosinophils % (0.00-5.0) % Basophils % (0.0-0.4) % Absolute Granulocytes (1.4-6.9) Basophils # (0-0.4) PT (9.4-12.5) SECONDS INR (0.8-3.0) Ionized Calcium 0.77 L (1.12-1.32) mmol/L Sodium (137-145) mmol/L Potassium (3.5-5.1) mmol/L Chloride (98-107) mmol/L Carbon Dioxide (22-30) mmol/L Anion Gap (5-15) MEQ/L BUN (7-17) mg/dL Creatinine (0.52-1.04) mg/dL Estimated GFR ML/MIN Glucose (74-106) mg/dL POC Glucometer 142 H 151 H (74 to 106) mg/dL Calcium (8.4-10.2) mg/dL Phosphorus (2.5-4.5) mg/dL Magnesium (1.6-2.3) mg/dL Total Bilirubin (0.2-1.3) mg/dL AST (14-36) U/L ALT (0-35) U/L Alkaline Phosphatase (38-126) U/L Troponin I (0.000-0.034) ng/mL NT-Pro-B Natriuret Pep (0-1800) pg/mL Serum Total Protein (6.3-8.2) g/dL Albumin (3.5-5.0) g/dL Prealbumin (17.6-36.0) mg/dL 25-OH Vitamin D Total (30-100) ng/mL Urine Color (YELLOW) Urine Appearance (CLEAR) Urine pH (5-6) Ur Specific [place] (1.005-1.025) Urine Protein (Negative) Urine Ketones (NEGATIVE) Urine Blood (0-5) Arya/ul Urine Nitrite (NEGATIVE) Urine Bilirubin (NEGATIVE) Urine Urobilinogen (0-1) mg/dL Ur Leukocyte Esterase (NEGATIVE) Urine WBC (Auto) (0-5) /HPF Urine RBC (Auto) (0-2) /HPF U Hyaline Cast (Auto) (0-2) /LPF U Epithel Cells (Auto) (FEW) /HPF Urine Bacteria (Auto) (NEGATIVE) /HPF Urine Mucus (Auto) (NEGATIVE) /HPF Urine Culture Reflexed (NO) Urine Glucose (NEGATIVE) mg/dL SARS-CoV-2 (PCR) (NEGATIVE) Accuchecks Date 07/07/21 Date 07/07/21 Time 11:55 Time 07:20 - Radiology Impressions Radiology Exams & Impressions: Radiology Procedures Category Date Time Status CHEST 1 VIEW (PORTABLE) Stat Exams 07/06/21 18:50 Completed CHEST WITHOUT CONTRAST [CT] Routine Exams 07/06/21 19:14 Completed - Other Procedures and Tests Respiratory Therapy 07/07/21 03:08 Oxygen Nasal Cannula 2 lpm Assessment/Plan (1) Chest wall contusion Current Visit: Yes Status: Acute Qualifiers: Laterality: left (2) Fall Current Visit: No Status: Acute Qualifiers: Encounter type: initial encounter Qualified Code(s): W19.XXXA - Unspecified fall, initial encounter Assessment & Plan: Rehab at [facility] Code(s): W19.XXXA - UNSPECIFIED FALL, INITIAL ENCOUNTER (3) Hypocalcemia Current Visit: Yes Status: Acute Assessment & Plan: ststes she cannot swallow the big calcium pills,Hypoparathyroidism following thyroidectomy Code(s): E83.51 - HYPOCALCEMIA (4) CHF (congestive heart failure) Current Visit: Yes Status: Chronic Assessment & Plan: does not take her Lasix as directed at home,trouble getting up to the bathroom Code(s): I50.9 - HEART FAILURE, UNSPECIFIED
[2021-07-07] MEDS ORDERED: Ativan 0.5 MG PO PRN (17:52)
[2021-07-08 05:25] LABS: Absolute Neutrophil Ct (ANC) 7.34 (1.4-6.9); BASOPHIL % 0.5 % (0.0-0.4); Basophil (Absolute #) 0.05 (0-0.4); Eosinophil % 2.4 % (0.00-5.0); Eosinophil (Absolute #) 0.22 (0-0.5); Hematocrit 36.6 % (35-47); Hemoglobin 10.5 gm/dl (12.0-16.0); Lymphocyte (Absolute #) 1.04 (1.0-4.6); Lymphocytes % 11.1 % (24.0-44.0); Mean Cell Volume 82.2 fl (78-100); Mean Corpuscular Hemoglobin 23.6 pg (26-32); Mean Corpuscular Hgb Concent. 28.7 g/dl (32-36); Mean Platelet Volume 11.1 fl (7.5-11.0); Monocyte (Absolute #) 0.69 (0.0-1.3); Monocytes % 7.4 % (0.0-12.0); Neutrophil % 78.6 % (36.0-66.0); Platelet Count 273 K/mm3 (150-450); Red Blood Count 4.45 M/mm3 (4.1-5.4); Red Cell Distribution Width 19.8 % (11.5-14.0); White Blood Count 9.3 K/mm3 (4.0-10.5)
[2021-07-08 06:27] LABS: Slide Review 1 YES
[2021-07-08 06:40] LABS: ALBUMIN 3.3 g/dL (3.5-5.0); ALKALINE PHOSPHATASE 101 U/L (38-126); ANION GAP 12.7 MEQ/L (5-15); BLOOD UREA NITROGEN 22 mg/dL (7-17); CHLORIDE 98 mmol/L (98-107); Calcium 6.4 mg/dL (8.4-10.2); Carbon Dioxide 31 mmol/L (22-30); Creatinine 1 0.89 mg/dL (0.52-1.04); EST GLOMERULAR FILTRATION RATE > 60.0 ML/MIN; Glucose 191 mg/dL (74-106); NT PRO BNP 22200 pg/mL (0-1800); Potassium 3.4 mmol/L (3.5-5.1); SGOT/AST 39 U/L (14-36); SGPT/ALT 32 U/L (0-35); SODIUM 139 mmol/L (137-145); Total Protein 6.1 g/dL (6.3-8.2)
[2021-07-08] MEDS: TYLENOL EXTRA STRENGTH 500 MG PO PRN (07:44)
[2021-07-08] MEDS: Rocephin 500 MG INJ** 500 MG in Sodium Chloride 0.9% 100 ML BAG 100 ML IV SCH (10:25)
[2021-07-08] MEDS: ECOTRIN 81 MG PO SCH (10:26)
[2021-07-08] MEDS: MYRBETRIQ PO SCH (10:26)
[2021-07-08] MEDS: Lasix 40 MG PO SCH (10:27)
[2021-07-08] MEDS: Coreg 6.25 MG PO SCH (10:27)
[2021-07-08] MEDS: Klor Con 10 MEQ PO SCH ×2 (10:27→14:39)
[2021-07-08] MEDS: Calcium 500MG W/Vit D Tablet PO SCH ×2 (10:27→14:39)
[2021-07-08] MEDS: SYNTHROID 150 MCG PO SCH (10:27)
[2021-07-08] MEDS: Zestril 5 MG PO SCH (10:27)
[2021-07-08] MEDS: MAG-OX 400 PO SCH (10:28)
[2021-07-08] MEDS: ZOCOR 20MG PO SCH (10:28)
[2021-07-08] MEDS: ZOLOFT 50 MG TABLET PO SCH (10:28)
[2021-07-08] MEDS: NON-FORMULARY ITEM PO SCH (10:29)
[2021-07-08] MEDS: DESYREL 50 MG PO SCH (10:38)
[2021-07-08 11:34] VITALS: BP 153/70; PULSE 83; O2SAT 93
[2021-07-08 12:45] LABS: INR 1.92 (0.8-3.0); PROTIME 22.6 SECONDS (9.4-12.5)
[2021-07-13] MEDS ORDERED: Fosamax 70 MG PO SCH (06:00)
[2021-07-13] MEDS ORDERED: VITAMIN D2 PO SCH (10:00)
== END 2021-07-08 14:58 ==
LOC: ED 18:06 → MED SURG 21:18
PROVIDERS: ADMIT General Practice; ATTEND Family Medicine
DX: S20.212A Contusion of left front wall of thorax, initial encounter (principal); S30.811A Abrasion of abdominal wall, initial encounter; E83.51 Hypocalcemia; I25.10 Atherosclerotic heart disease of native coronary artery without angina pectoris; I11.0 Hypertensive heart disease with heart failure; I50.9 Heart failure, unspecified; W19.XXXA Unspecified fall, initial encounter; E11.9 Type 2 diabetes mellitus without complications; J44.9 Chronic obstructive pulmonary disease, unspecified; Z91.14 Patient's other noncompliance with medication regimen; Z79.01 Long term (current) use of anticoagulants; Z20.822 Contact with and (suspected) exposure to COVID-19
CPT/HCPCS: 36000; 36415; 71045; 71250; 80053; 81001; 82306; 82330; 82947; 83735; 83880; 83970; 84100; 84134; 84484; 85025; 85610; 87077; 87086; 87186; 93005; 94660; 94760; 94762; 99285; U0003; J0610; J0696; A9270-GY

== ENCOUNTER 2021-09-17 12:34 | Inpatient (IN) | payer MEDICARE ==
--- NOTE | 2021-09-17 12:37 | ERPHSYRPT ---
- History of Present Illness Time Seen by Provider: 09/17/21 12:37 Source: patient, EMS Exam Limitations: clinical condition Physician History: This is a 80-year-old morbidly obese female who was discharged to home from a local care home 1 week ago. This morning, the tried to wake his spouse up and was difficult to do so. He called their daughter who came to the home and was able to wake her up enough to get her to use the bathroom. While sitting on the toilet she seemed to slump over. EMS was contacted. The family wanted the patient to be transferred to [facility]. However, the patient was hypoxic with her room air oxygen saturation levels in the 80s and she had a low blood pressure in the high 80s low 90s systolic. Patient arrives to the emerge ncy department a little more awake and alert but still sleepy. Her systolic blood pressure is 92 mmHg. Her room air oxygenation levels 99%. Patient has a history of CABG, cardiac valve replacement on Coumadin, hypertension, elevated cholesterol, hypothyroidism, asthma, COPD. Patient has a pacemaker/defibrillator in place. 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 Patient's daughter states that patient normally uses a walker or cane to ambulate. She did so as recently as yesterday to obtain labs at the hospital. Timing/Duration: today Severity: moderate Deficits: cannot stand, cannot walk Baseline/Normal Cognition: alert oriented x 3 Current Cognition: poor alertness Baseline Gait: uses cane, uses walker Associated Symptoms: confusion Allergies/Adverse Reactions: levofloxacin [From Levaquin] Allergy (Verified 07/06/21 18:26) Itching Home Medications: Aspirin 81 gm Chew [Baby Aspirin 81 mg Chew] 1 tab PO DAILY 04/12/21 [History] Warfarin Sodium [Coumadin] 2 mg PO HS 04/12/21 [History] Alendronate Sodium [Fosamax] 1 tab PO DAILY 07/06/21 [History] Aspirin 81 tab PO DAILY 07/06/21 [History] Calcium Carbonate/Vitamin D3 [Calcium 500 + Vit D 200 Tablet] 1 tab PO TID 07/06/21 [History] Carvedilol 6.25 mg [Coreg 6.25 MG] 6.25 mg PO BID 07/06/21 [History] Ergocalciferol (Vitamin D2) [Vitamin D] 50,000 unit PO WEEKLY 07/06/21 [History] Levothyroxine Sodium 150 Mcg [Synthroid 150 Mcg] 175 mcg PO DAILY 07/06/21 [History] Magnesium Oxide 400 mg [Mag-Ox 400] 400 mg PO DAILY 07/06/21 [History] Mirabegron [Myrbetriq] 50 mg PO DAILY 07/06/21 [History] Potassium Chloride 20 meq PO TID 07/06/21 [History] Rosuvastatin Calcium [Crestor] 10 mg PO DAILY 07/06/21 [History] Sertraline HCl 50 mg [Zoloft 50 mg Tablet] 50 mg PO DAILY 07/06/21 [History] Trazodone HCl 50 mg [Desyrel 50 mg] 50 mg PO DAILY 07/06/21 [History] calcitrioL [Calcitriol] 0.5 mcg PO DAILY 07/06/21 [History] Hx Tetanus, Diphtheria Vaccination/Date Given: Yes Hx Influenza Vaccination/Date Given: Yes Hx Pneumococcal Vaccination/Date Given: Yes Travel Risk - International Travel Have you traveled outside of the country in past 3 weeks: No - Coronavirus Screening Are you exhibiting any of the following symptoms?: No Close contact with a COVID-19 positive Pt in past 14-21 Days: No - Vaccine Status Have you recieved a Covid-19 vaccination: Yes Team Manager: Buffer - Vaccination Dates Date of 2cond Vaccination (if applicable): 10/22/20 Comment: Per patient - Review of Systems Constitutional: Lethargy (Mild, arousable), Weakness Eyes: No Symptoms Ears, Nose, & Throat: No Symptoms Respiratory: No Symptoms Cardiac: No Symptoms Abdominal/Gastrointestinal: Abdominal Pain (Bilateral lower quadrants) Genitourinary Symptoms: No Symptoms Musculoskeletal: No Symptoms Skin: No Symptoms Neurological: No Symptoms Psychological: No Symptoms Endocrine: No Symptoms Hematologic/Lymphatic: No Symptoms Immunological/Allergic: No Symptoms All Other Systems: Reviewed and Negative - Past Medical History Pertinent Past Medical History: Yes Neurological History: Peripheral Neuropathy ENT History: Cataracts Cardiac History: Arrhythmia, Congestive Heart Failure, Coronary Artery Disease, Hypertension Respiratory History: Asthma, CHF, COPD, Pneumonia, Sleep Apnea Endocrine Medical History: Diabetes Type II, Hypothyroidism Musculoskeletal History: Arthritis, Fractures, Osteoarthritis GI Medical History: No Pertinent History History: No Pertinent History Psycho-Social History: Anxiety, Depression Female Reproductive Disorders: No Pertinent History Other Medical History: open heart surgery, valve replacement, thyroid removed. - Past Surgical History Past Surgical History: Yes Neuro Surgical History: No Pertinent History Cardiac: CABG, Cardiac Catheterization, Cardiac Stent, Internal Defibrillator Respiratory: Chest Surgery Gastrointestinal: Cholecystectomy, Other Musculoskeletal: Joint Replacement Female Surgical History: Hysterectomy Other Surgical History: Bilat knee Replacement - Social History Smoking Status: Never smoker Exposure to second hand smoke: No Drug Use: none Patient Lives Alone: No - Nursing Vital Signs Nursing Vital Signs: Initial Vital Signs Temperature 96.2 F 09/17/21 12:35 Pulse Rate 95 H 09/17/21 12:35 Respiratory Rate 24 09/17/21 12:35 Blood Pressure 92/42 09/17/21 12:35 O2 Sat by Pulse Oximetry 95 09/17/21 12:35 Pain Scale Pain Intensity 4 - Carmen Coma Scale Best Eye Response ([place]armen): (3) open to voice Best Verbal Response ([place]): (5) oriented Best Motor Response (Carmen): (6) obeys commands Carmen Total: 14 - Physical Exam General Appearance: mild distress, lethargy (Mild, arousable), obese Eye Exam: bilateral eye: normal inspection, PERRL, EOMI Ears, Nose, Throat Exam: normal ENT inspection, dry mucous membranes Neck Exam: normal inspection, non-tender, supple, full range of motion Respiratory: normal breath sounds, lungs clear, airway intact, No chest tenderness, No respiratory distress Cardiovascular: regular rate/rhythm, normal heart sounds, normal peripheral pulses Gastrointestinal: soft, normal bowel sounds, tenderness, guarding (Bilateral lower quadrants) Pelvic Exam: not done Rectal Exam: not done Back Exam: normal inspection, normal range of motion, No CVA tenderness, No vertebral tenderness Extremity Exam: normal inspection, normal range of motion, pelvis stable Mental Status: oriented x 3, lethargy (Arousable. 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: normal hearing, normal speech, PERRL, tongue midline Skin Exam: normal color, warm, dry SpO2 Interpretation: normal O2 Delivery: Room Air Ordered Tests: Active Orders 24 hr Category Date Time Status Heating Operators Engineer STAT Care 09/17/21 12:50 Active Catheter-[place] Chappell STAT Care 09/17/21 12:47 Active EKG-ER Only STAT Care 09/17/21 12:47 Active IV Insertion STAT Care 09/17/21 12:51 Active Oxygen-ED Only Nasal Cannula 2 lpm Care 09/17/21 12:47 Active POCT Glucose Check STAT Care 09/17/21 12:47 Active Pulse Oximetry (ED) STAT Care 09/17/21 12:47 Active ABDOMEN AND PELVIS W/0 CONTRAS [CT] Stat Exams 09/17/21 12:52 Completed HEAD WITHOUT CONTRAST [CT] Stat Exams 09/17/21 12:50 Completed AMYLASE Stat Lab 09/17/21 12:50 Completed ARTERIAL BLOOD GASES Stat Lab 09/17/21 13:51 Completed BLOOD CULTURE Stat Lab 09/17/21 12:45 Received CBC W DIFF Stat Lab 09/17/21 12:50 Completed CMP Stat Lab 09/17/21 12:50 Completed CULTURE,URINE Stat Lab 09/17/21 13:02 Ordered LIPASE Stat Lab 09/17/21 12:50 Completed Lactic Acid Stat Lab 09/17/21 12:51 Completed Lactic Acid Stat Lab 09/17/21 15:20 Received Manual Differential NC Stat Lab 09/17/21 12:50 Completed POCT GLUCOSE Stat Lab 09/17/21 13:31 Received POCT GLUCOSE Stat Lab 09/17/21 13:32 Received POCT GLUCOSE Stat Lab 09/17/21 13:33 Completed PROTIME WITH INR Stat Lab 09/17/21 12:50 Completed T4 (Thyroxine) Stat Lab 09/17/21 12:50 Completed TROPONIN Q3H Lab 09/17/21 12:50 Completed TROPONIN Q3H Lab 09/17/21 16:00 Ordered TROPONIN Q3H Lab 09/17/21 19:00 Ordered TROPONIN Q3H Lab 09/17/21 22:00 Ordered TROPONIN Q3H Lab 09/18/21 01:00 Ordered TSH, 3RD Generation Stat Lab 09/17/21 12:50 Completed UA W/RFX UR CULTURE Stat Lab 09/17/21 13:02 Completed Transfer Order Routine Transfer 09/17/21 Ordered Medication Summary Generic Name Dose Route Start Last Admin Trade Name Freq PRN Reason Stop Dose Admin Sodium Chloride 1,000 mls @ 100 mls/hr 09/17/21 13:00 09/17/21 13:00 Sodium Chloride 0.9% 1000 Ml IV 10/17/21 12:59 100 mls/hr .Q10H JOHN Administration Discontinued Medications Generic Name Dose Route Start Last Admin Trade Name Loyd PRN Reason Stop Dose Admin Acetaminophen 650 mg 09/17/21 12:59 09/17/21 13:09 Acetaminophen 325 Mg Tablet PO 09/17/21 13:00 650 mg STAT STA Administration Acetaminophen Confirm 09/17/21 13:09 Acetaminophen 325 Mg Tablet Administered 09/17/21 13:10 Dose 650 mg .ROUTE .STK-MED ONE Meropenem 1 g/ Sodium Chloride 100 mls @ 200 mls/hr 09/17/21 13:44 09/17/21 14:11 IV 09/17/21 14:13 200 mls/hr STAT ONE Administration Sodium Chloride Confirm 09/17/21 13:47 Sodium Chloride 100ml Mini-Bag Plus Administered 09/17/21 13:48 Dose 100 mls @ ud IV .STK-MED ONE Meropenem Confirm 09/17/21 13:47 Meropenem 1 Gm Vial Administered 09/17/21 13:48 Dose 1 g IV .STK-MED ONE Lab/Rad Data: Laboratory Result Diagrams 09/17/21 12:50 09/17/21 12:50 Laboratory Results 09/17/21 09/17/21 09/17/21 Range/Units 13:51 13:33 13:02 WBC (4.0-10.5) K/mm3 RBC (4.1-5.4) M/mm3 Hgb (12.0-16.0) gm/dl Hct (35-47) % MCV (78-100) fl MCH (26-32) pg MCHC (32-36) g/dl RDW (11.5-14.0) % Plt Count (150-450) K/mm3 MPV (7.5-11.0) fl Segmented Neutrophils (36.0-66.0) % Band Neutrophils (0.0-2.0) % Lymphocytes (Manual) (24-44) % Monocytes (Manual) (0.0-12.0) % Platelet Estimate (NORMAL) RBC Morphology PT (9.4-12.5) SECONDS INR (0.8-3.0) Puncture Site RIGHT BRACHIAL pCO2 25 L (35-45) mmHg pO2 107 H (75-100) mmHg Base Excess -9.0 L (-2.0-2.0) O2 Saturation 96.6 (94-100) g/dF ABG pH 7.37 (7.35-7.45) ABG HCO3 14.5 L* (22-28) ABG O2 Sat (Measured) 98.5 (95-100) % Miky Test YES A-a Gradient 61 a/A Ratio 0.64 Hemoglobin 13.9 Carboxyhemoglobin 1.0 (0.0-6.9) % THgb Methemoglobin 1.0 L (1.4-1.5) % Temperature 37.0 C POC O2 Flow Rate 28 % Sodium (137-145) mmol/L Potassium 3.6 (3.5-5.1) mmol/L Chloride (98-107) mmol/L Carbon Dioxide (22-30) mmol/L Anion Gap (5-15) MEQ/L BUN (7-17) mg/dL Creatinine (0.52-1.04) mg/dL Estimated GFR ML/MIN Glucose (74-106) mg/dL POC Glucometer 168 H (74 to 106) mg/dL Lactic Acid (0.4-2.0) Calcium (8.4-10.2) mg/dL Total Bilirubin (0.2-1.3) mg/dL AST (14-36) U/L ALT (0-35) U/L Alkaline Phosphatase (38-126) U/L Ammonia (9-30) umol/L Troponin I (0.000-0.034) ng/mL Serum Total Protein (6.3-8.2) g/dL Albumin (3.5-5.0) g/dL Amylase (30-110) U/L Lipase (23-300) U/L Thyroxine (T4) (5.53-10.96) ug/dL TSH 3rd Generation (0.47-4.68) mIU/L Urine Color YELLOW (YELLOW) Urine Appearance TURBID (CLEAR) Urine pH 5.0 (5-6) Ur Specific [place] 1.012 (1.005-1.025) Urine Protein 100 (Negative) Urine Ketones NEGATIVE (NEGATIVE) Urine Blood SMALL (0-5) Arya/ul Urine Nitrite NEGATIVE (NEGATIVE) Urine Bilirubin NEGATIVE (NEGATIVE) Urine Urobilinogen NEGATIVE (0-1) mg/dL Ur Leukocyte Esterase MODERATE (NEGATIVE) Urine WBC (Auto) >100 (0-5) /HPF Urine Bacteria (Auto) PACKED (NEGATIVE) /HPF Urine Mucus (Auto) MANY (NEGATIVE) /HPF Urine Culture Reflexed ORDERED SEPARATELY (NO) Urine Glucose >=500 (NEGATIVE) mg/dL 09/17/21 09/17/21 09/17/21 Range/Units 12:51 12:50 12:50 WBC (4.0-10.5) K/mm3 RBC (4.1-5.4) M/mm3 Hgb (12.0-16.0) gm/dl Hct (35-47) % MCV (78-100) fl MCH (26-32) pg MCHC (32-36) g/dl RDW (11.5-14.0) % Plt Count (150-450) K/mm3 MPV (7.5-11.0) fl Segmented Neutrophils (36.0-66.0) % Band Neutrophils (0.0-2.0) % Lymphocytes (Manual) (24-44) % Monocytes (Manual) (0.0-12.0) % Platelet Estimate (NORMAL) RBC Morphology PT 41.0 H (9.4-12.5) SECONDS INR 3.47 H (0.8-3.0) Puncture Site pCO2 (35-45) mmHg pO2 (75-100) mmHg Base Excess (-2.0-2.0) O2 Saturation (94-100) g/dF ABG pH (7.35-7.45) ABG HCO3 (22-28) ABG O2 Sat (Measured) (95-100) % Miky Test A-a Gradient a/A Ratio Hemoglobin Carboxyhemoglobin (0.0-6.9) % THgb Methemoglobin (1.4-1.5) % Temperature C POC O2 Flow Rate % Sodium (137-145) mmol/L Potassium (3.5-5.1) mmol/L Chloride (98-107) mmol/L Carbon Dioxide (22-30) mmol/L Anion Gap (5-15) MEQ/L BUN (7-17) mg/dL Creatinine (0.52-1.04) mg/dL Estimated GFR ML/MIN Glucose (74-106) mg/dL POC Glucometer (74 to 106) mg/dL Lactic Acid 12.6 H (0.4-2.0) Calcium (8.4-10.2) mg/dL Total Bilirubin (0.2-1.3) mg/dL AST (14-36) U/L ALT (0-35) U/L Alkaline Phosphatase (38-126) U/L Ammonia < 9 L (9-30) umol/L Troponin I (0.000-0.034) ng/mL Serum Total Protein (6.3-8.2) g/dL Albumin (3.5-5.0) g/dL Amylase (30-110) U/L Lipase (23-300) U/L Thyroxine (T4) (5.53-10.96) ug/dL TSH 3rd Generation (0.47-4.68) mIU/L Urine Color (YELLOW) Urine Appearance (CLEAR) Urine pH (5-6) Ur Specific [place] (1.005-1.025) Urine Protein (Negative) Urine Ketones (NEGATIVE) Urine Blood (0-5) Arya/ul Urine Nitrite (NEGATIVE) Urine Bilirubin (NEGATIVE) Urine Urobilinogen (0-1) mg/dL Ur Leukocyte Esterase (NEGATIVE) Urine WBC (Auto) (0-5) /HPF Urine Bacteria (Auto) (NEGATIVE) /HPF Urine Mucus (Auto) (NEGATIVE) /HPF Urine Culture Reflexed (NO) Urine Glucose (NEGATIVE) mg/dL 09/17/21 09/17/21 09/17/21 Range/Units 12:50 12:50 12:50 WBC 23.1 H (4.0-10.5) K/mm3 RBC 4.29 (4.1-5.4) M/mm3 Hgb 13.6 (12.0-16.0) gm/dl Hct 44.0 (35-47) % MCV 102.6 H (78-100) fl MCH 31.7 (26-32) pg MCHC 30.9 L (32-36) g/dl RDW 19.4 H (11.5-14.0) % Plt Count 225 (150-450) K/mm3 MPV 11.3 H (7.5-11.0) fl Segmented Neutrophils 81 H (36.0-66.0) % Band Neutrophils 14 H (0.0-2.0) % Lymphocytes (Manual) 4 L (24-44) % Monocytes (Manual) 1 (0.0-12.0) % Platelet Estimate NORMAL (NORMAL) RBC Morphology NORMAL PT (9.4-12.5) SECONDS INR (0.8-3.0) Puncture Site pCO2 (35-45) mmHg pO2 (75-100) mmHg Base Excess (-2.0-2.0) O2 Saturation (94-100) g/dF ABG pH (7.35-7.45) ABG HCO3 (22-28) ABG O2 Sat (Measured) (95-100) % Miky Test A-a Gradient a/A Ratio Hemoglobin Carboxyhemoglobin (0.0-6.9) % THgb Methemoglobin (1.4-1.5) % Temperature C POC O2 Flow Rate % Sodium 138 (137-145) mmol/L Potassium 4.1 (3.5-5.1) mmol/L Chloride 100 (98-107) mmol/L Carbon Dioxide 15 L* (22-30) mmol/L Anion Gap 26.1 H (5-15) MEQ/L BUN 37 H (7-17) mg/dL Creatinine 2.22 H (0.52-1.04) mg/dL Estimated GFR 22.6 ML/MIN Glucose 180 H (74-106) mg/dL POC Glucometer (74 to 106) mg/dL Lactic Acid (0.4-2.0) Calcium 8.6 (8.4-10.2) mg/dL Total Bilirubin 1.60 H (0.2-1.3) mg/dL AST 1240 H (14-36) U/L ALT 379 H (0-35) U/L Alkaline Phosphatase 231 H (38-126) U/L Ammonia (9-30) umol/L Troponin I 0.208 H* (0.000-0.034) ng/mL Serum Total Protein 5.9 L (6.3-8.2) g/dL Albumin 3.4 L (3.5-5.0) g/dL Amylase 240 H (30-110) U/L Lipase 308 H (23-300) U/L Thyroxine (T4) 9.57 (5.53-10.96) ug/dL TSH 3rd Generation 2.460 (0.47-4.68) mIU/L Urine Color (YELLOW) Urine Appearance (CLEAR) Urine pH (5-6) Ur Specific [place] (1.005-1.025) Urine Protein (Negative) Urine Ketones (NEGATIVE) Urine Blood (0-5) Arya/ul Urine Nitrite (NEGATIVE) Urine Bilirubin (NEGATIVE) Urine Urobilinogen (0-1) mg/dL Ur Leukocyte Esterase (NEGATIVE) Urine WBC (Auto) (0-5) /HPF Urine Bacteria (Auto) (NEGATIVE) /HPF Urine Mucus (Auto) (NEGATIVE) /HPF Urine Culture Reflexed (NO) Urine Glucose (NEGATIVE) mg/dL - Progress Progress Note: 09/17/21 14:29 CT scan of the abdomen pelvis does not show any acute intra-abdominal or intrapelvic process. CT scan of the head without contrast shows a nonacute senile brain CT. 09/17/21 15:21 Medical decision making: This patient has urosepsis, acute renal failure and elevated troponin likely secondary to the sepsis and acute renal failure. Her altered mental status is likely due to sepsis as well. She does not complain of any chest pain. [facility] is full and is not accepting patients at this time. [facility] hospitals only excepting trauma patients. [facility] in [place] [facility] is full. There is a wait list at [facility] in [place]. [facility] in [place] is only excepting trauma and acute surgical abdomen. This patient will be placed in the intensive care unit with IV hydration, intravenous antibiotics, Levophed if necessary. Dr. Buenrostro agrees with the above admission into the intensive care unit. We discussed this with the patient's family they understand the circumstances and agree with the plan. 09/17/21 15:25 Discussed with : Emil Counseled pt/family regarding: lab results, diagnosis, need for follow-up, rad results - Departure Departure Disposition: In-patient Admission Clinical Impression: Sepsis associated hypotension, Altered mental status, Acute renal failure, Elevated troponin, Hypotension Condition: Serious Critical Care Time: Yes Critical Care Time(excluding separately billable procedures): Critical 30-74 mins (45 minutes) Referrals: INDER AUGUSTINE DO [Primary Care Provider] - Follow up/PCP as directed
[2021-09-17] MEDS ORDERED: Sodium Chloride 0.9% 1000 ML 1,000 ML ONE ×3 (12:58→17:54)
[2021-09-17] MEDS ORDERED: TYLENOL 325 MG PO STA (12:59)
[2021-09-17] MEDS ORDERED: Sodium Chloride 0.9% 1000 ML 1,000 ML IV SCH ×2 (13:00→18:00)
[2021-09-17] MEDS ORDERED: TYLENOL 325 MG ONE (13:09)
[2021-09-17 13:14] LABS: INR 3.47 (0.8-3.0)
[2021-09-17 13:23] LABS: Hemoglobin 13.6 gm/dl (12.0-16.0); Mean Cell Volume 102.6 fl (78-100); Mean Corpuscular Hemoglobin 31.7 pg (26-32); Mean Corpuscular Hgb Concent. 30.9 g/dl (32-36); Mean Platelet Volume 11.3 fl (7.5-11.0); Platelet Count 225 K/mm3 (150-450); Red Blood Count 4.29 M/mm3 (4.1-5.4); Red Cell Distribution Width 19.4 % (11.5-14.0); White Blood Count 23.1 K/mm3 (4.0-10.5)
[2021-09-17 13:36] LABS: Appearance TURBID (CLEAR); Bacteria PACKED /HPF (NEGATIVE); Bilirubin NEGATIVE (NEGATIVE); Blood SMALL Ery/ul (0-5); Glucose >=500 mg/dL (NEGATIVE); Ketones NEGATIVE (NEGATIVE); Leukocyte Esterase MODERATE (NEGATIVE); Mucus MANY /HPF (NEGATIVE); Nitrite NEGATIVE (NEGATIVE); Protein,Urine Dip 100 (Negative); Specific Gravity 1.012 (1.005-1.025); Urobilinogen NEGATIVE mg/dL (0-1); WBC >100 /HPF (0-5)
[2021-09-17] MEDS ORDERED: Merrem 1 GM 1 G in Sodium Chloride 100ML MINI-BAG PLUS 100 ML IV ONE (13:44)
[2021-09-17] MEDS ORDERED: Sodium Chloride 100ML MINI-BAG PLUS 100 ML IV ONE ×2 (13:47→21:31)
[2021-09-17] MEDS ORDERED: Merrem 1 GM IV ONE (13:47)
[2021-09-17 13:51] LABS: ALBUMIN 3.4 g/dL (3.5-5.0); ANION GAP 26.1 MEQ/L (5-15); BILIRUBIN,TOTAL 1.6 mg/dL (0.2-1.3); Calcium 8.6 mg/dL (8.4-10.2); Creatinine 1 2.22 mg/dL (0.52-1.04); EST GLOMERULAR FILTRATION RATE 22.6 ML/MIN; Potassium 4.1 mmol/L (3.5-5.1); T4 (Thyroxine) 9.57 ug/dL (5.53-10.96); TSH, 3RD Generation 2.46 mIU/L (0.47-4.68); Total Protein 5.9 g/dL (6.3-8.2)
[2021-09-17 13:53] LABS: A-aADO2 61; ABG HEMOGLOBIN 13.9; ABG POTASSIUM 3.6 (3.5-5.1); ABG SITE RIGHT BRACHIAL; ALLEN TEST OK? YES; ARTERIAL BLD GAS O2 SATURATION 98.5 % (95-100); ARTERIAL BLOOD GAS FIO2 28 %; ARTERIAL BLOOD GAS PCO2 25 mmHg (35-45); ARTERIAL BLOOD GAS PO2 107 mmHg (75-100); ARTERIAL BLOOD GAS pH 7.37 (7.35-7.45); HCO3- 14.5 (22-28); HGB O2 SAT 96.6 g/dF (94-100)
--- NOTE | 2021-09-17 14:11 | XRAY ---
Indication: Altered mental status. Multiple contiguous axial images obtained through the head without contrast. Comparison: March 09, 2020. Again age-appropriate global atrophy and moderate periventricular degenerative micro-ischemia bilaterally. No acute intracranial hemorrhage, abnormal extra-axial fluid collection, or mass effect. Fourth ventricle is midline without hydrocephalus. Bony calvarium intact. Visualized paranasal sinuses and mastoid air cells are clear. Impression: Continued nonacute senile brain.
[2021-09-17 14:16] LABS: BAND 14 % (0.0-2.0); Lymphocytes 4 % (24-44); Monocyte 1 % (0.0-12.0); Neutrophils 81 % (36.0-66.0); Platelet Estimate NORMAL (NORMAL); Total Cells Counted 100
--- NOTE | 2021-09-17 14:19 | XRAY ---
Indication: Abdomen pain. Multiple contiguous axial images obtained through the abdomen and pelvis without contrast. Comparison: CT abdomen May 01, 2019. Patient's arms again produces beam artifact. Lung bases are degraded by respiration artifact. Mild bilateral dependent atelectasis. Heart is not enlarged again with aortic/mitral valve replacement surgery and cardiac pacer leads. Stable small hiatal hernia. Again previous gastric bypass surgery and cholecystectomy. Hysterectomy also reported with multiple left pelvic surgical clips. Noncontrasted stomach and bowel loops nonobstructed. Urinary bladder empty with Chappell balloon catheter in situ. No free fluid/air. Stable numerous splenic calcified granulomas, bilateral renal cysts, and fatty right adrenal myelolipoma. Remaining liver, pancreas, spleen, adrenal glands, kidneys, and ureters are unremarkable for noncontrast exam. Again mild scattered aortoiliac calcifications without AAA. Osseous structures intact with mild osteopenia and mild degenerative changes throughout the spine. New right lower back spinal stimulator device with lead terminating S3 level. Small fatty infraumbilical ventral hernia not previously imaged. There are again numerous bilateral gluteal injection granulomas. Impression: 1. Stable small hiatal hernia, colonic diverticulosis, bilateral renal cysts, right adrenal myolipoma, postsurgical changes, chronic bony findings, and old granulomatous disease. 2. Incidental small fatty infraumbilical ventral hernia and Chappell balloon catheter in situ both not previously imaged. 3. Remaining CT abdomen/pelvis without contrast exam is negative.
[2021-09-17] MEDS ORDERED: Sodium Chloride 0.9% 1000 ML 1,000 ML IV STA ×2 (16:10→18:37)
[2021-09-17] MEDS: LEVOPHED 4 MG/4 ML 4,000 MCG in Dextrose 5%/Water IV Soln. 500 ML 500 ML IV PRN (17:13)
[2021-09-17 17:34] LABS: INFLUENZA A NEGATIVE (NEGATIVE); INFLUENZA B NEGATIVE (NEGATIVE); RESPIRATORY SYNCTIAL VIRUS NEGATIVE (Negative); SARS-CoV-2 Xpert Express NEGATIVE (NEGATIVE)
[2021-09-17] MEDS ORDERED: LEVOPHED 4 MG/4 ML 4,000 MCG in Dextrose 5%/Water IV Soln. 500 ML 500 ML IV PRN (18:37)
[2021-09-17] MEDS: Zofran 4 MG/2 ML VIAL IV PRN (19:49)
[2021-09-17] MEDS ORDERED: MERREM 500MG IV ONE (21:30)
[2021-09-17] MEDS: MERREM 500MG 500 MG in Sodium Chloride 100ML MINI-BAG PLUS 100 ML IV SCH (21:33)
[2021-09-17] MEDS ORDERED: Sodium Chloride 0.9% 500 ML 500 ML IV ONE (21:59)
[2021-09-17] MEDS ORDERED: Sodium Chloride 0.9% 500 ML 500 ML IV SCH (22:15)
[2021-09-18 00:30] LABS: 027 TOX PROD PRESUMPTIVE NEGATIVE (NEGATIVE); TOXIGENIC C. DIFF ORG NEGATIVE (NEGATIVE)
[2021-09-18] MEDS: Zofran 4 MG/2 ML VIAL IV PRN ×2 (01:56→10:33)
[2021-09-18 02:21] LABS: Hematocrit 42.8 % (35-47); Hemoglobin 13.1 gm/dl (12.0-16.0); Mean Cell Volume 101.2 fl (78-100); Mean Corpuscular Hgb Concent. 30.6 g/dl (32-36); Mean Platelet Volume 11.1 fl (7.5-11.0); Platelet Count 172 K/mm3 (150-450); Red Blood Count 4.23 M/mm3 (4.1-5.4); Red Cell Distribution Width 19.5 % (11.5-14.0); White Blood Count 16.4 K/mm3 (4.0-10.5)
[2021-09-18] MEDS: TYLENOL 325 MG PO PRN ×3 (02:32→18:48)
[2021-09-18 02:48] LABS: ALBUMIN 2.4 g/dL (3.5-5.0); BILIRUBIN,TOTAL 1.1 mg/dL (0.2-1.3); Creatinine 1 1.75 mg/dL (0.52-1.04); EST GLOMERULAR FILTRATION RATE 29.8 ML/MIN; Potassium 3.5 mmol/L (3.5-5.1); Total Protein 4.7 g/dL (6.3-8.2)
[2021-09-18] MEDS: LEVOPHED 4 MG/4 ML 4,000 MCG in Dextrose 5%/Water IV Soln. 500 ML 500 ML IV PRN ×4 (02:54→17:58)
[2021-09-18 03:03] LABS: Calcium 6.7 mg/dL (8.4-10.2)
[2021-09-18 03:09] LABS: BAND 25 % (0.0-2.0); Lymphocytes 1 % (24-44); Metamyelocyte 8 %; Monocyte 3 % (0.0-12.0); Neutrophils 63 % (36.0-66.0); Platelet Estimate NORMAL (NORMAL); Total Cells Counted 100
[2021-09-18] MEDS ORDERED: MERREM 500MG IV ONE (05:28)
[2021-09-18] MEDS ORDERED: Sodium Chloride 100ML MINI-BAG PLUS 100 ML IV ONE (05:28)
[2021-09-18] MEDS: MERREM 500MG 500 MG in Sodium Chloride 100ML MINI-BAG PLUS 100 ML IV SCH ×3 (05:30→22:24)
--- NOTE | 2021-09-18 13:24 | PCM.HP ---
History of Present Illness - Chief Complaint Chief Complaint: UROSEPSIS, HYPOTENSION, ARF, ELEVATED TROPONIN, AMS History of Present Illness: is a 80 year old female with multiple medical problems. Presented to ER via EMS after found her slumped over on the toilet. Daughter reports "GI bug with diarrhea for a few days". ER work up positive for Urosepsis. Nurse reports stool with blood clots today,heme positive.Coumadin is held since admission and the day prior per daughter by Dr Estrada who follows INR. PMHx includes HTN,HLD, CAD/S/P CABG,S/P cardiac valve replacement on coumadim,CKD ,S/P bladder stimulator with Dr Zhang about a yr ago,COPD,asthma, DM2 noncompliant on meds.Recent Dg polymyalgiarhuematica tx by Dr Lundberg with Prednisone 10mg to be reduced to 5 mg. Patient was to be transfered to [place] but no beds available. Is on a wait list..B/P 80/50 started Levofed drip and IV Meropenom for Urosepsis. - Review of Systems Constitutional: Chills, Fatigue, Lethargy Eyes: No Symptoms Ears, Nose, & Throat: No Symptoms Respiratory: Short Of Breath Cardiac: Syncope (prior to admission) Abdominal/Gastrointestinal: Nausea, Diarrhea, Other (passed heme positive stool on admission with visible clots per nursing(coumadin held since admission)) Genitourinary Symptoms: Other (has bladder) Musculoskeletal: Arthralgias, Back Pain, Joint Pain (left knee), Myalgias Neurological: Lethargy Psychological: Anxiety, Depression Endocrine: Polyuria Hematologic/Lymphatic: Other (recent blood transfusion per daughter after "too much blood thinner at the Rehab") Medications & Allergies Home Medications: Home Medication List Aspirin 81 gm Chew [Baby Aspirin 81 mg Chew] 1 tab PO DAILY 04/12/21 [History Confirmed 09/17/21] Warfarin Sodium [Coumadin] 2 mg PO HS 04/12/21 [History Confirmed 09/17/21] Calcium Carbonate/Vitamin D3 [Calcium 500 + Vit D 200 Tablet] 1 tab PO BID 07/06/21 [History Confirmed 09/17/21] Carvedilol 6.25 mg [Coreg 6.25 MG] 6.25 mg PO BID 07/06/21 [History Confirmed 09/17/21] Magnesium Oxide 400 mg [Mag-Ox 400] 400 mg PO DAILY 07/06/21 [History Confirmed 09/17/21] Potassium Chloride 20 meq PO BID 07/06/21 [History Confirmed 09/17/21] Rosuvastatin Calcium [Crestor] 10 mg PO DAILY 07/06/21 [History Confirmed 09/17/21] Sertraline HCl 50 mg [Zoloft 50 mg Tablet] 50 mg PO DAILY 07/06/21 [History Confirmed 09/17/21] Trazodone HCl 50 mg [Desyrel 50 mg] 50 mg PO HS 07/06/21 [History Confirmed 09/17/21] calcitrioL [Calcitriol] 0.5 mcg PO DAILY 07/06/21 [History Confirmed 09/17/21] Furosemide 40 mg [Lasix 40 MG] 40 mg PO DAILY #30 tablet 07/08/21 [Rx Confirmed 09/17/21] Docusate Sodium 100 mg [Colace 100 MG] 100 mg PO BID 09/17/21 [History Confirmed 09/17/21] Empagliflozin [Jardiance] 1 tab PO DAILY 09/17/21 [History Confirmed 09/17/21] Ferrous Sulfate [Iron] 325 mg PO DAILY 09/17/21 [History Confirmed 09/17/21] Furosemide 40 mg [Lasix 40 MG] 40 mg PO BID 09/17/21 [History Confirmed 09/17/21] Levothyroxine Sodium 25 Mcg [Synthroid 25 Mcg] 175 mcg PO DAILY 09/17/21 [History Confirmed 09/17/21] Losartan Potassium 50 mg [Cozaar 50 MG] 50 mg PO DAILY 09/17/21 [History Confirmed 09/17/21] Prednisone 10 mg [Deltasone 10 mg] 1 tablet PO DAILY 09/17/21 [History Confirmed 09/17/21] Spironolactone 25 mg [Aldactone 25 MG] 25 mg PO DAILY 09/17/21 [History Confirmed 09/17/21] Allergies/Adverse Reactions: Allergies Allergy/AdvReac Type Severity Reaction Status Date / Time levofloxacin [From Levaquin] Allergy Itching Verified 07/06/21 18:26 - Past Medical History Past Medical History: Yes Neurological History: Peripheral Neuropathy ENT History: Cataracts Cardiac History: Arrhythmia, Congestive Heart Failure, Coronary Artery Disease, Hypertension Respiratory History: Asthma, CHF, COPD, Pneumonia, Sleep Apnea Endocrine Medical History: Diabetes Type II, Hypothyroidism Musculoskelatal History: Arthritis, Fractures, Osteoarthritis GI Medical History: No Pertinent History History: No Pertinent History Pyscho-Social History: Anxiety, Depression Reproductive Disorders: No Pertinent History Comment: open heart surgery, valve replacement, thyroid removed. - Past Surgical History Past Surgical History: Yes Neuro Surgical History: No Pertinent History Cardiac History: CABG, Cardiac Catheterization, Cardiac Stent, Internal Defibrillator Respiratory Surgery: Chest Surgery GI Surgical History: Cholecystectomy, Other Musculskeletal Surgical Hx: Joint Replacement Female Surgical History: Hysterectomy Other Surgical History: Bilat knee Replacement - Social History Smoking Status: Never smoker Exposure to second hand smoke: No Alcohol: Rarely Drug Use: none - Physical Exam Vital Signs: Vital Signs - 24 hr Temp Pulse Resp BP Pulse Ox 09/18/21 13:00 100.8 F 108 H 29 H 95/60 97 09/18/21 11:59 100.8 F 106 H 27 H 108/58 98 09/18/21 11:00 100.8 F 106 H 28 H 79/50 98 09/18/21 09:48 100.8 F 103 H 30 H 93/48 98 09/18/21 09:00 100.8 F 102 H 24 76/42 98 09/18/21 08:22 97 09/18/21 07:42 100.8 F 108 H 28 H 105/60 98 09/18/21 06:31 100.8 F 108 H 27 H 82/49 97 09/18/21 05:41 100.9 F 108 H 27 H 101/58 09/18/21 05:00 100.9 F 107 H 26 H 96/43 09/18/21 03:45 101.1 F 106 H 24 112/60 09/18/21 02:35 100.8 F 106 H 23 106/56 09/18/21 01:28 100.0 F 105 H 23 108/65 09/18/21 00:26 99.1 F 103 H 27 H 106/58 09/18/21 00:01 103 H 09/17/21 23:50 99.1 F 102 H 27 H 103/58 09/17/21 23:08 98 H 27 H 86/43 09/17/21 22:21 99 F 94 H 26 H 87/37 98 09/17/21 21:54 99 F 98 H 26 H 90/46 99 09/17/21 21:00 99 F 99 H 28 H 89/44 98 09/17/21 20:00 99 F 99 H 28 H 85/49 98 09/17/21 19:05 98 09/17/21 18:37 98.8 F 92 H 16 87/45 96 09/17/21 17:04 98.4 F 87 16 87/45 98 09/17/21 16:00 99 F 90 18 92/49 99 09/17/21 13:44 101.5 F 91 H 24 76/44 98 General Appearance: lethargy, other (alert and oriented x3 ,when spoken to answers approprialy) Neurologic Exam: oriented x 3, cooperative Eye Exam: eyes nml inspection Ears, Nose, Throat Exam: normal ENT inspection Neck Exam: normal inspection Respiratory Exam: diminished breath sounds (no ronchi ,rales or wheeze) Cardiovascular Exam: tachycardia Gastrointestinal/Abdomen Exam: soft, normal bowel sounds (nontender) Pelvic Exam: not done Rectal Exam: not done, other (heme test all stools,hemepositive x 1 on admission) Back Exam: CVA tenderness Results - Labs Lab/Micro Results: Lab Results-Last 24 Hours 09/17/21 09/17/21 09/17/21 Range/Units 12:50 12:50 12:50 WBC 23.1 H (4.0-10.5) K/mm3 RBC 4.29 (4.1-5.4) M/mm3 Hgb 13.6 (12.0-16.0) gm/dl Hct 44.0 (35-47) % MCV 102.6 H (78-100) fl MCH 31.7 (26-32) pg MCHC 30.9 L (32-36) g/dl RDW 19.4 H (11.5-14.0) % Plt Count 225 (150-450) K/mm3 MPV 11.3 H (7.5-11.0) fl Segmented Neutrophils 81 H (36.0-66.0) % Band Neutrophils 14 H (0.0-2.0) % Lymphocytes (Manual) 4 L (24-44) % Monocytes (Manual) 1 (0.0-12.0) % Metamyelocytes % Platelet Estimate NORMAL (NORMAL) RBC Morphology NORMAL PT (9.4-12.5) SECONDS INR (0.8-3.0) Puncture Site pCO2 (35-45) mmHg pO2 (75-100) mmHg Base Excess (-2.0-2.0) O2 Saturation (94-100) g/dF ABG pH (7.35-7.45) ABG HCO3 (22-28) ABG O2 Sat (Measured) (95-100) % Miky Test A-a Gradient a/A Ratio Hemoglobin Carboxyhemoglobin (0.0-6.9) % THgb Methemoglobin (1.4-1.5) % Temperature C POC O2 Flow Rate % Sodium 138 (137-145) mmol/L Potassium 4.1 (3.5-5.1) mmol/L Chloride 100 (98-107) mmol/L Carbon Dioxide 15 L* (22-30) mmol/L Anion Gap 26.1 H (5-15) MEQ/L BUN 37 H (7-17) mg/dL Creatinine 2.22 H (0.52-1.04) mg/dL Estimated GFR 22.6 ML/MIN Glucose 180 H (74-106) mg/dL POC Glucometer (74 to 106) mg/dL Lactic Acid (0.4-2.0) Calcium 8.6 (8.4-10.2) mg/dL Total Bilirubin 1.60 H (0.2-1.3) mg/dL AST 1240 H (14-36) U/L ALT 379 H (0-35) U/L Alkaline Phosphatase 231 H (38-126) U/L Ammonia (9-30) umol/L Troponin I 0.208 H* (0.000-0.034) ng/mL Serum Total Protein 5.9 L (6.3-8.2) g/dL Albumin 3.4 L (3.5-5.0) g/dL Amylase 240 H (30-110) U/L Lipase 308 H (23-300) U/L Procalcitonin (0.030-0.080) ng/mL Thyroxine (T4) 9.57 (5.53-10.96) ug/dL TSH 3rd Generation 2.460 (0.47-4.68) mIU/L Urine Color (YELLOW) Urine Appearance (CLEAR) Urine pH (5-6) Ur Specific [place] (1.005-1.025) Urine Protein (Negative) Urine Ketones (NEGATIVE) Urine Blood (0-5) Arya/ul Urine Nitrite (NEGATIVE) Urine Bilirubin (NEGATIVE) Urine Urobilinogen (0-1) mg/dL Ur Leukocyte Esterase (NEGATIVE) Urine WBC (Auto) (0-5) /HPF Urine Bacteria (Auto) (NEGATIVE) /HPF Urine Mucus (Auto) (NEGATIVE) /HPF Urine Culture Reflexed (NO) Urine Glucose (NEGATIVE) mg/dL Stool Occult Blood (NEGATIVE) C. difficile Screen (NEGATIVE) C.difficile 027-NAP1-B1 (NEGATIVE) Influenza Type A Ag (NEGATIVE) Influenza Type B Ag (NEGATIVE) RSV (PCR) (Negative) SARS-CoV-2 (PCR) (NEGATIVE) 09/17/21 09/17/21 09/17/21 Range/Units 12:50 12:50 13:02 WBC (4.0-10.5) K/mm3 RBC (4.1-5.4) M/mm3 Hgb (12.0-16.0) gm/dl Hct (35-47) % MCV (78-100) fl MCH (26-32) pg MCHC (32-36) g/dl RDW (11.5-14.0) % Plt Count (150-450) K/mm3 MPV (7.5-11.0) fl Segmented Neutrophils (36.0-66.0) % Band Neutrophils (0.0-2.0) % Lymphocytes (Manual) (24-44) % Monocytes (Manual) (0.0-12.0) % Metamyelocytes % Platelet Estimate (NORMAL) RBC Morphology PT 41.0 H (9.4-12.5) SECONDS INR 3.47 H (0.8-3.0) Puncture Site pCO2 (35-45) mmHg pO2 (75-100) mmHg Base Excess (-2.0-2.0) O2 Saturation (94-100) g/dF ABG pH (7.35-7.45) ABG HCO3 (22-28) ABG O2 Sat (Measured) (95-100) % Miky Test A-a Gradient a/A Ratio Hemoglobin Carboxyhemoglobin (0.0-6.9) % THgb Methemoglobin (1.4-1.5) % Temperature C POC O2 Flow Rate % Sodium (137-145) mmol/L Potassium (3.5-5.1) mmol/L Chloride (98-107) mmol/L Carbon Dioxide (22-30) mmol/L Anion Gap (5-15) MEQ/L BUN (7-17) mg/dL Creatinine (0.52-1.04) mg/dL Estimated GFR ML/MIN Glucose (74-106) mg/dL POC Glucometer (74 to 106) mg/dL Lactic Acid (0.4-2.0) Calcium (8.4-10.2) mg/dL Total Bilirubin (0.2-1.3) mg/dL AST (14-36) U/L ALT (0-35) U/L Alkaline Phosphatase (38-126) U/L Ammonia < 9 L (9-30) umol/L Troponin I (0.000-0.034) ng/mL Serum Total Protein (6.3-8.2) g/dL Albumin (3.5-5.0) g/dL Amylase (30-110) U/L Lipase (23-300) U/L Procalcitonin (0.030-0.080) ng/mL Thyroxine (T4) (5.53-10.96) ug/dL TSH 3rd Generation (0.47-4.68) mIU/L Urine Color YELLOW (YELLOW) Urine Appearance TURBID (CLEAR) Urine pH 5.0 (5-6) Ur Specific [place] 1.012 (1.005-1.025) Urine Protein 100 (Negative) Urine Ketones NEGATIVE (NEGATIVE) Urine Blood SMALL (0-5) Arya/ul Urine Nitrite NEGATIVE (NEGATIVE) Urine Bilirubin NEGATIVE (NEGATIVE) Urine Urobilinogen NEGATIVE (0-1) mg/dL Ur Leukocyte Esterase MODERATE (NEGATIVE) Urine WBC (Auto) >100 (0-5) /HPF Urine Bacteria (Auto) PACKED (NEGATIVE) /HPF Urine Mucus (Auto) MANY (NEGATIVE) /HPF Urine Culture Reflexed ORDERED SEPARATELY (NO) Urine Glucose >=500 (NEGATIVE) mg/dL Stool Occult Blood (NEGATIVE) C. difficile Screen (NEGATIVE) C.difficile 027-NAP1-B1 (NEGATIVE) Influenza Type A Ag (NEGATIVE) Influenza Type B Ag (NEGATIVE) RSV (PCR) (Negative) SARS-CoV-2 (PCR) (NEGATIVE) 09/17/21 09/17/21 09/17/21 Range/Units 13:33 13:51 15:20 WBC (4.0-10.5) K/mm3 RBC (4.1-5.4) M/mm3 Hgb (12.0-16.0) gm/dl Hct (35-47) % MCV (78-100) fl MCH (26-32) pg MCHC (32-36) g/dl RDW (11.5-14.0) % Plt Count (150-450) K/mm3 MPV (7.5-11.0) fl Segmented Neutrophils (36.0-66.0) % Band Neutrophils (0.0-2.0) % Lymphocytes (Manual) (24-44) % Monocytes (Manual) (0.0-12.0) % Metamyelocytes % Platelet Estimate (NORMAL) RBC Morphology PT (9.4-12.5) SECONDS INR (0.8-3.0) Puncture Site RIGHT BRACHIAL pCO2 25 L (35-45) mmHg pO2 107 H (75-100) mmHg Base Excess -9.0 L (-2.0-2.0) O2 Saturation 96.6 (94-100) g/dF ABG pH 7.37 (7.35-7.45) ABG HCO3 14.5 L* (22-28) ABG O2 Sat (Measured) 98.5 (95-100) % Miky Test YES A-a Gradient 61 a/A Ratio 0.64 Hemoglobin 13.9 Carboxyhemoglobin 1.0 (0.0-6.9) % THgb Methemoglobin 1.0 L (1.4-1.5) % Temperature 37.0 C POC O2 Flow Rate 28 % Sodium (137-145) mmol/L Potassium 3.6 (3.5-5.1) mmol/L Chloride (98-107) mmol/L Carbon Dioxide (22-30) mmol/L Anion Gap (5-15) MEQ/L BUN (7-17) mg/dL Creatinine (0.52-1.04) mg/dL Estimated GFR ML/MIN Glucose (74-106) mg/dL POC Glucometer 168 H (74 to 106) mg/dL Lactic Acid 6.4 H (0.4-2.0) Calcium (8.4-10.2) mg/dL Total Bilirubin (0.2-1.3) mg/dL AST (14-36) U/L ALT (0-35) U/L Alkaline Phosphatase (38-126) U/L Ammonia (9-30) umol/L Troponin I (0.000-0.034) ng/mL Serum Total Protein (6.3-8.2) g/dL Albumin (3.5-5.0) g/dL Amylase (30-110) U/L Lipase (23-300) U/L Procalcitonin (0.030-0.080) ng/mL Thyroxine (T4) (5.53-10.96) ug/dL TSH 3rd Generation (0.47-4.68) mIU/L Urine Color (YELLOW) Urine Appearance (CLEAR) Urine pH (5-6) Ur Specific [place] (1.005-1.025) Urine Protein (Negative) Urine Ketones (NEGATIVE) Urine Blood (0-5) Arya/ul Urine Nitrite (NEGATIVE) Urine Bilirubin (NEGATIVE) Urine Urobilinogen (0-1) mg/dL Ur Leukocyte Esterase (NEGATIVE) Urine WBC (Auto) (0-5) /HPF Urine Bacteria (Auto) (NEGATIVE) /HPF Urine Mucus (Auto) (NEGATIVE) /HPF Urine Culture Reflexed (NO) Urine Glucose (NEGATIVE) mg/dL Stool Occult Blood (NEGATIVE) C. difficile Screen (NEGATIVE) C.difficile 027-NAP1-B1 (NEGATIVE) Influenza Type A Ag (NEGATIVE) Influenza Type B Ag (NEGATIVE) RSV (PCR) (Negative) SARS-CoV-2 (PCR) (NEGATIVE) 09/17/21 09/17/21 09/17/21 Range/Units 16:16 16:33 18:04 WBC (4.0-10.5) K/mm3 RBC (4.1-5.4) M/mm3 Hgb (12.0-16.0) gm/dl Hct (35-47) % MCV (78-100) fl MCH (26-32) pg MCHC (32-36) g/dl RDW (11.5-14.0) % Plt Count (150-450) K/mm3 MPV (7.5-11.0) fl Segmented Neutrophils (36.0-66.0) % Band Neutrophils (0.0-2.0) % Lymphocytes (Manual) (24-44) % Monocytes (Manual) (0.0-12.0) % Metamyelocytes % Platelet Estimate (NORMAL) RBC Morphology PT (9.4-12.5) SECONDS INR (0.8-3.0) Puncture Site pCO2 (35-45) mmHg pO2 (75-100) mmHg Base Excess (-2.0-2.0) O2 Saturation (94-100) g/dF ABG pH (7.35-7.45) ABG HCO3 (22-28) ABG O2 Sat (Measured) (95-100) % Miky Test A-a Gradient a/A Ratio Hemoglobin Carboxyhemoglobin (0.0-6.9) % THgb Methemoglobin (1.4-1.5) % Temperature C POC O2 Flow Rate % Sodium (137-145) mmol/L Potassium (3.5-5.1) mmol/L Chloride (98-107) mmol/L Carbon Dioxide (22-30) mmol/L Anion Gap (5-15) MEQ/L BUN (7-17) mg/dL Creatinine (0.52-1.04) mg/dL Estimated GFR ML/MIN Glucose (74-106) mg/dL POC Glucometer (74 to 106) mg/dL Lactic Acid (0.4-2.0) Calcium (8.4-10.2) mg/dL Total Bilirubin (0.2-1.3) mg/dL AST (14-36) U/L ALT (0-35) U/L Alkaline Phosphatase (38-126) U/L Ammonia (9-30) umol/L Troponin I 0.216 H* 0.234 H* (0.000-0.034) ng/mL Serum Total Protein (6.3-8.2) g/dL Albumin (3.5-5.0) g/dL Amylase (30-110) U/L Lipase (23-300) U/L Procalcitonin (0.030-0.080) ng/mL Thyroxine (T4) (5.53-10.96) ug/dL TSH 3rd Generation (0.47-4.68) mIU/L Urine Color (YELLOW) Urine Appearance (CLEAR) Urine pH (5-6) Ur Specific [place] (1.005-1.025) Urine Protein (Negative) Urine Ketones (NEGATIVE) Urine Blood (0-5) Arya/ul Urine Nitrite (NEGATIVE) Urine Bilirubin (NEGATIVE) Urine Urobilinogen (0-1) mg/dL Ur Leukocyte Esterase (NEGATIVE) Urine WBC (Auto) (0-5) /HPF Urine Bacteria (Auto) (NEGATIVE) /HPF Urine Mucus (Auto) (NEGATIVE) /HPF Urine Culture Reflexed (NO) Urine Glucose (NEGATIVE) mg/dL Stool Occult Blood (NEGATIVE) C. difficile Screen (NEGATIVE) C.difficile 027-NAP1-B1 (NEGATIVE) Influenza Type A Ag NEGATIVE (NEGATIVE) Influenza Type B Ag NEGATIVE (NEGATIVE) RSV (PCR) NEGATIVE (Negative) SARS-CoV-2 (PCR) NEGATIVE (NEGATIVE) 09/17/21 09/17/21 09/17/21 Range/Units 23:00 23:44 23:44 WBC (4.0-10.5) K/mm3 RBC (4.1-5.4) M/mm3 Hgb (12.0-16.0) gm/dl Hct (35-47) % MCV (78-100) fl MCH (26-32) pg MCHC (32-36) g/dl RDW (11.5-14.0) % Plt Count (150-450) K/mm3 MPV (7.5-11.0) fl Segmented Neutrophils (36.0-66.0) % Band Neutrophils (0.0-2.0) % Lymphocytes (Manual) (24-44) % Monocytes (Manual) (0.0-12.0) % Metamyelocytes % Platelet Estimate (NORMAL) RBC Morphology PT (9.4-12.5) SECONDS INR (0.8-3.0) Puncture Site pCO2 (35-45) mmHg pO2 (75-100) mmHg Base Excess (-2.0-2.0) O2 Saturation (94-100) g/dF ABG pH (7.35-7.45) ABG HCO3 (22-28) ABG O2 Sat (Measured) (95-100) % Miky Test A-a Gradient a/A Ratio Hemoglobin Carboxyhemoglobin (0.0-6.9) % THgb Methemoglobin (1.4-1.5) % Temperature C POC O2 Flow Rate % Sodium (137-145) mmol/L Potassium (3.5-5.1) mmol/L Chloride (98-107) mmol/L Carbon Dioxide (22-30) mmol/L Anion Gap (5-15) MEQ/L BUN (7-17) mg/dL Creatinine (0.52-1.04) mg/dL Estimated GFR ML/MIN Glucose (74-106) mg/dL POC Glucometer (74 to 106) mg/dL Lactic Acid (0.4-2.0) Calcium (8.4-10.2) mg/dL Total Bilirubin (0.2-1.3) mg/dL AST (14-36) U/L ALT (0-35) U/L Alkaline Phosphatase (38-126) U/L Ammonia (9-30) umol/L Troponin I 0.221 H* (0.000-0.034) ng/mL Serum Total Protein (6.3-8.2) g/dL Albumin (3.5-5.0) g/dL Amylase (30-110) U/L Lipase (23-300) U/L Procalcitonin (0.030-0.080) ng/mL Thyroxine (T4) (5.53-10.96) ug/dL TSH 3rd Generation (0.47-4.68) mIU/L Urine Color (YELLOW) Urine Appearance (CLEAR) Urine pH (5-6) Ur Specific [place] (1.005-1.025) Urine Protein (Negative) Urine Ketones (NEGATIVE) Urine Blood (0-5) Arya/ul Urine Nitrite (NEGATIVE) Urine Bilirubin (NEGATIVE) Urine Urobilinogen (0-1) mg/dL Ur Leukocyte Esterase (NEGATIVE) Urine WBC (Auto) (0-5) /HPF Urine Bacteria (Auto) (NEGATIVE) /HPF Urine Mucus (Auto) (NEGATIVE) /HPF Urine Culture Reflexed (NO) Urine Glucose (NEGATIVE) mg/dL Stool Occult Blood POSITIVE A (NEGATIVE) C. difficile Screen NEGATIVE (NEGATIVE) C.difficile 027-NAP1-B1 PRESUMPTIVE NEGATIVE (NEGATIVE) Influenza Type A Ag (NEGATIVE) Influenza Type B Ag (NEGATIVE) RSV (PCR) (Negative) SARS-CoV-2 (PCR) (NEGATIVE) 09/18/21 09/18/21 09/18/21 Range/Units 02:17 02:17 02:17 WBC 16.4 H (4.0-10.5) K/mm3 RBC 4.23 (4.1-5.4) M/mm3 Hgb 13.1 (12.0-16.0) gm/dl Hct 42.8 (35-47) % MCV 101.2 H (78-100) fl MCH 31.0 (26-32) pg MCHC 30.6 L (32-36) g/dl RDW 19.5 H (11.5-14.0) % Plt Count 172 (150-450) K/mm3 MPV 11.1 H (7.5-11.0) fl Segmented Neutrophils 63 (36.0-66.0) % Band Neutrophils 25 H (0.0-2.0) % Lymphocytes (Manual) 1 L (24-44) % Monocytes (Manual) 3 (0.0-12.0) % Metamyelocytes 8 % Platelet Estimate NORMAL (NORMAL) RBC Morphology NORMAL PT (9.4-12.5) SECONDS INR (0.8-3.0) Puncture Site pCO2 (35-45) mmHg pO2 (75-100) mmHg Base Excess (-2.0-2.0) O2 Saturation (94-100) g/dF ABG pH (7.35-7.45) ABG HCO3 (22-28) ABG O2 Sat (Measured) (95-100) % Miky Test A-a Gradient a/A Ratio Hemoglobin Carboxyhemoglobin (0.0-6.9) % THgb Methemoglobin (1.4-1.5) % Temperature C POC O2 Flow Rate % Sodium 133 L (137-145) mmol/L Potassium 3.5 (3.5-5.1) mmol/L Chloride 103 (98-107) mmol/L Carbon Dioxide 18 L (22-30) mmol/L Anion Gap 15.0 (5-15) MEQ/L BUN 41 H (7-17) mg/dL Creatinine 1.75 H (0.52-1.04) mg/dL Estimated GFR 29.8 ML/MIN Glucose 229 H (74-106) mg/dL POC Glucometer (74 to 106) mg/dL Lactic Acid (0.4-2.0) Calcium 6.7 L D (8.4-10.2) mg/dL Total Bilirubin 1.10 (0.2-1.3) mg/dL AST 372 H (14-36) U/L ALT 233 H (0-35) U/L Alkaline Phosphatase 142 H (38-126) U/L Ammonia (9-30) umol/L Troponin I 0.217 H* (0.000-0.034) ng/mL Serum Total Protein 4.7 L (6.3-8.2) g/dL Albumin 2.4 L (3.5-5.0) g/dL Amylase (30-110) U/L Lipase (23-300) U/L Procalcitonin (0.030-0.080) ng/mL Thyroxine (T4) (5.53-10.96) ug/dL TSH 3rd Generation (0.47-4.68) mIU/L Urine Color (YELLOW) Urine Appearance (CLEAR) Urine pH (5-6) Ur Specific [place] (1.005-1.025) Urine Protein (Negative) Urine Ketones (NEGATIVE) Urine Blood (0-5) Arya/ul Urine Nitrite (NEGATIVE) Urine Bilirubin (NEGATIVE) Urine Urobilinogen (0-1) mg/dL Ur Leukocyte Esterase (NEGATIVE) Urine WBC (Auto) (0-5) /HPF Urine Bacteria (Auto) (NEGATIVE) /HPF Urine Mucus (Auto) (NEGATIVE) /HPF Urine Culture Reflexed (NO) Urine Glucose (NEGATIVE) mg/dL Stool Occult Blood (NEGATIVE) C. difficile Screen (NEGATIVE) C.difficile 027-NAP1-B1 (NEGATIVE) Influenza Type A Ag (NEGATIVE) Influenza Type B Ag (NEGATIVE) RSV (PCR) (Negative) SARS-CoV-2 (PCR) (NEGATIVE) 09/18/21 09/18/21 Range/Units 02:17 05:09 WBC (4.0-10.5) K/mm3 RBC (4.1-5.4) M/mm3 Hgb (12.0-16.0) gm/dl Hct (35-47) % MCV (78-100) fl MCH (26-32) pg MCHC (32-36) g/dl RDW (11.5-14.0) % Plt Count (150-450) K/mm3 MPV (7.5-11.0) fl Segmented Neutrophils (36.0-66.0) % Band Neutrophils (0.0-2.0) % Lymphocytes (Manual) (24-44) % Monocytes (Manual) (0.0-12.0) % Metamyelocytes % Platelet Estimate (NORMAL) RBC Morphology PT (9.4-12.5) SECONDS INR (0.8-3.0) Puncture Site pCO2 (35-45) mmHg pO2 (75-100) mmHg Base Excess (-2.0-2.0) O2 Saturation (94-100) g/dF ABG pH (7.35-7.45) ABG HCO3 (22-28) ABG O2 Sat (Measured) (95-100) % Miky Test A-a Gradient a/A Ratio Hemoglobin Carboxyhemoglobin (0.0-6.9) % THgb Methemoglobin (1.4-1.5) % Temperature C POC O2 Flow Rate % Sodium (137-145) mmol/L Potassium (3.5-5.1) mmol/L Chloride (98-107) mmol/L Carbon Dioxide (22-30) mmol/L Anion Gap (5-15) MEQ/L BUN (7-17) mg/dL Creatinine (0.52-1.04) mg/dL Estimated GFR ML/MIN Glucose (74-106) mg/dL POC Glucometer (74 to 106) mg/dL Lactic Acid 3.1 H (0.4-2.0) Calcium (8.4-10.2) mg/dL Total Bilirubin (0.2-1.3) mg/dL AST (14-36) U/L ALT (0-35) U/L Alkaline Phosphatase (38-126) U/L Ammonia (9-30) umol/L Troponin I (0.000-0.034) ng/mL Serum Total Protein (6.3-8.2) g/dL Albumin (3.5-5.0) g/dL Amylase (30-110) U/L Lipase (23-300) U/L Procalcitonin 49.400 H* (0.030-0.080) ng/mL Thyroxine (T4) (5.53-10.96) ug/dL TSH 3rd Generation (0.47-4.68) mIU/L Urine Color (YELLOW) Urine Appearance (CLEAR) Urine pH (5-6) Ur Specific [place] (1.005-1.025) Urine Protein (Negative) Urine Ketones (NEGATIVE) Urine Blood (0-5) Arya/ul Urine Nitrite (NEGATIVE) Urine Bilirubin (NEGATIVE) Urine Urobilinogen (0-1) mg/dL Ur Leukocyte Esterase (NEGATIVE) Urine WBC (Auto) (0-5) /HPF Urine Bacteria (Auto) (NEGATIVE) /HPF Urine Mucus (Auto) (NEGATIVE) /HPF Urine Culture Reflexed (NO) Urine Glucose (NEGATIVE) mg/dL Stool Occult Blood (NEGATIVE) C. difficile Screen (NEGATIVE) C.difficile 027-NAP1-B1 (NEGATIVE) Influenza Type A Ag (NEGATIVE) Influenza Type B Ag (NEGATIVE) RSV (PCR) (Negative) SARS-CoV-2 (PCR) (NEGATIVE) Microbiology 09/17/21 13:02 Urine Culture - Preliminary Catherized <10K NORMAL SKIN HEMANT PROBABLE SKIN CONTAMINANT - Radiology Impressions Radiology Exams & Impressions: Radiology Procedures Category Date Time Status ABDOMEN AND PELVIS W/0 CONTRAS [CT] Stat Exams 09/17/21 12:52 Completed HEAD WITHOUT CONTRAST [CT] Stat Exams 09/17/21 12:50 Completed - Other Procedures and Tests Respiratory Therapy 09/17/21 18:37 Oxygen Nasal Cannula 2 lpm Assessment/Plan (1) Sepsis associated hypotension Current Visit: Yes Status: Acute Assessment & Plan: urosepsis started on Meropenom ,cultures pending- WBC overnight improved Code(s): A41.9 - SEPSIS, UNSPECIFIED ORGANISM; I95.9 - HYPOTENSION, UNSPECIFIED (2) CHF (congestive heart failure) Current Visit: No Status: Chronic Qualifiers: Heart failure type: unspecified Heart failure chronicity: acute on chronic Qualified Code(s): I50.9 - Heart failure, unspecified Code(s): I50.9 - HEART FAILURE, UNSPECIFIED (3) HTN (hypertension) Current Visit: Yes Status: Chronic Assessment & Plan: meds held. Hypotension on Levofed drip Code(s): I10 - ESSENTIAL (PRIMARY) HYPERTENSION (4) Diabetes type 2, uncontrolled Current Visit: Yes Status: Chronic Qualifiers: Glycemic state: with hyperglycemia Qualified Code(s): E11.65 - Type 2 diabetes mellitus with hyperglycemia Assessment & Plan: noncompliant with meds and diet Code(s): E11.65 - TYPE 2 DIABETES MELLITUS WITH HYPERGLYCEMIA (5) Valvular heart disease Current Visit: Yes Status: Chronic Assessment & Plan: Dr Estrada follows (6) Anticoagulant long-term use Current Visit: Yes Status: Chronic Assessment & Plan: INR elevated and coumadin held since day prior to admission Code(s): Z79.01 - ASSISTED (CURRENT) USE OF ANTICOAGULANTS
[2021-09-18 13:56] LABS: Hematocrit 46.2 % (35-47); Hemoglobin 14.3 gm/dl (12.0-16.0); Mean Cell Volume 99.8 fl (78-100); Mean Corpuscular Hemoglobin 30.9 pg (26-32); Platelet Count 130 K/mm3 (150-450); Red Blood Count 4.63 M/mm3 (4.1-5.4); Red Cell Distribution Width 19.5 % (11.5-14.0); White Blood Count 9.4 K/mm3 (4.0-10.5)
[2021-09-18] MEDS ORDERED: Sodium Chloride 0.9% 1000 ML 1,000 ML IV SCH (15:15)
[2021-09-18] MEDS: ZOCOR 20MG PO SCH (15:16)
[2021-09-18] MEDS: ZOLOFT 50 MG TABLET PO SCH (15:16)
[2021-09-18] MEDS: Aldactone 25 MG PO SCH (15:16)
[2021-09-18] MEDS: DELTASONE 5 MG PO SCH (15:16)
[2021-09-18] MEDS: SYNTHROID 75 MCG PO SCH (15:16)
[2021-09-18] MEDS: FEOSOL 325 MG PO SCH (15:16)
[2021-09-18] MEDS: SYNTHROID 100 MCG PO SCH (15:16)
[2021-09-18] MEDS: NON-FORMULARY ITEM PO SCH ×2 (15:17→15:18)
[2021-09-18] MEDS ORDERED: NORCO 5/325 MG PO PRN (19:30)
[2021-09-18] MEDS ORDERED: NORCO 5/325 MG ONE (19:31)
[2021-09-18] MEDS: NORCO 5/325 MG PO PRN (19:34)
[2021-09-18] MEDS ORDERED: Lidoderm Patch 5% TOP SCH (19:45)
[2021-09-18 21:43] LABS: ATYPICAL LYMPHS 2 %; BAND 29 % (0.0-2.0); Dohle Bodies 1+; Eosinophil 1 % (0.00-3.0); Lymphocytes 3 % (24-44); Metamyelocyte 12 %; Monocyte 3 % (0.0-12.0); Neutrophils 50 % (36.0-66.0); Total Cells Counted 100
[2021-09-18 21:44] LABS: ACANTHROCYTES 1+; Platelet Estimate NORMAL (NORMAL); Poikilocytosis 1+
[2021-09-18] MEDS: Calcium 500MG W/Vit D Tablet PO SCH (22:20)
[2021-09-19] MEDS: LEVOPHED 4 MG/4 ML 4,000 MCG in Dextrose 5%/Water IV Soln. 500 ML 500 ML IV PRN (03:16)
[2021-09-19] MEDS: MERREM 500MG 500 MG in Sodium Chloride 100ML MINI-BAG PLUS 100 ML IV SCH (05:39)
[2021-09-19] MEDS: NORCO 5/325 MG PO PRN (06:22)
[2021-09-19] MEDS ORDERED: NON-FORMULARY ITEM (Rosuvastatin Calcium [Crestor] 10 MG Tablet) PO SCH (10:00)
[2021-09-19] MEDS ORDERED: NON-FORMULARY ITEM (Calcitriol [Calcitriol] 0.5 MCG Capsule) PO SCH (10:00)
[2021-09-19] MEDS ORDERED: SYNTHROID 25 MCG PO SCH (10:00)
[2021-09-19] MEDS ORDERED: NON-FORMULARY ITEM (Empagliflozin [Jardiance] 10 MG Tablet) PO SCH (10:00)
[2021-09-19] MEDS: SYNTHROID 100 MCG PO SCH (10:08)
[2021-09-19] MEDS: FEOSOL 325 MG PO SCH (10:08)
[2021-09-19] MEDS: ZOLOFT 50 MG TABLET PO SCH (10:09)
[2021-09-19] MEDS: ZOCOR 20MG PO SCH (10:09)
[2021-09-19] MEDS: NON-FORMULARY ITEM PO SCH ×2 (10:09→10:11)
[2021-09-19] MEDS: SYNTHROID 75 MCG PO SCH (10:09)
[2021-09-19] MEDS: Calcium 500MG W/Vit D Tablet PO SCH (10:09)
[2021-09-19] MEDS: DELTASONE 5 MG PO SCH (10:09)
[2021-09-19] MEDS: Aldactone 25 MG PO SCH (10:42)
[2021-09-19 11:46] LABS: Hematocrit 40.2 % (35-47); Hemoglobin 12.6 gm/dl (12.0-16.0); Mean Cell Volume 98.8 fl (78-100); Mean Corpuscular Hgb Concent. 31.3 g/dl (32-36); Platelet Count 120 K/mm3 (150-450); Red Blood Count 4.07 M/mm3 (4.1-5.4); Red Cell Distribution Width 19.3 % (11.5-14.0)
[2021-09-19 11:53] LABS: INR 3.97 (0.8-3.0); PROTIME 46.9 SECONDS (9.4-12.5)
[2021-09-19 12:07] LABS: ALBUMIN 2.4 g/dL (3.5-5.0); BILIRUBIN,TOTAL 0.7 mg/dL (0.2-1.3); Creatinine 1 1.39 mg/dL (0.52-1.04); EST GLOMERULAR FILTRATION RATE 38.9 ML/MIN; Potassium 3.3 mmol/L (3.5-5.1); Total Protein 4.9 g/dL (6.3-8.2)
[2021-09-19 12:13] LABS: BAND 5 % (0.0-2.0); Eosinophil 5 % (0.00-3.0); Lymphocytes 13 % (24-44); Monocyte 12 % (0.0-12.0); Neutrophils 65 % (36.0-66.0); Total Cells Counted 100
[2021-09-19 12:14] LABS: ANISOCYTOSIS 1+; Platelet Estimate NORMAL (NORMAL); Toxic Granulation 1+
--- NOTE | 2021-09-19 13:34 | PCM.DS ---
Discharge Summary Date of Admission: 09/17/21 18:10 Date of Discharge: 09/19/2021 Admitting Physician: INDER AUGUSTINE DO Primary Care Provider: INDER AUGUSTINE DO Allergies Allergies levofloxacin [From Levaquin] Allergy (Verified 07/06/21 18:26) Itching Hospital Summary - Hospital Course Hospital Course: Patient presented to ER lethargic and hypotensive ,work up showed Urosepsis. Patient acute on chronic CHF and is S/P heart valve replacement on Coumadin followed by Dr Estrada, INR was elevated and stool heme+ on admission.. PMHx also includes DM2 ,HTN,CAD -S/P CABG. Recently started on Prednisone for PMR. Warfarin has been held since admission,last INR today =3.41. Patient was to be transfered to [place] but wait listed and admitted to [facility] ICU bed on Levophed drip. B/P 80/50-60 during stay. Meropenom was started for Urosepsis and WBC came down fro 23,000 to 9,000 overnight and now 5,000 day of transfer. Patient remained oriented x 3 but very lethargic. TELE showefd run of [place] this morning . Stat labs abnormals passed on to ICU nurse at [place] and will be addressed on admission to [facility] (potassium and calcium both low on stat labs)Transfer accepted to [facility] ICU , DR Yancey with Dr Rose consulting. Patient is aware and understands the need to transfer. - Vitals & Intake/Output Vital Signs: Vital Signs Temperature 99.3 F 09/19/21 10:00 Pulse Rate 89 09/19/21 10:00 Respiratory Rate 19 09/19/21 10:00 Blood Pressure 109/56 09/19/21 10:00 O2 Sat by Pulse Oximetry 97 09/19/21 10:00 Intake & Output: Intake & Output 09/17/21 09/18/21 09/19/21 09/20/21 11:59 11:59 11:59 11:59 Intake Total 4302 4247 Output Total 585 1350 Balance 3717 2897 Weight 89.8 kg 91.2 kg - Lab Result Diagrams: 09/19/21 11:38 09/19/21 11:38 Lab Results-Last 24 Hrs: Lab Results-Last 24 Hours 09/18/21 09/18/21 09/18/21 Range/Units 05:00 13:52 16:36 WBC 9.4 (4.0-10.5) K/mm3 RBC 4.63 (4.1-5.4) M/mm3 Hgb 14.3 (12.0-16.0) gm/dl Hct 46.2 (35-47) % MCV 99.8 (78-100) fl MCH 30.9 (26-32) pg MCHC 31.0 L (32-36) g/dl RDW 19.5 H (11.5-14.0) % Plt Count 130 L (150-450) K/mm3 MPV 11.0 (7.5-11.0) fl Segmented Neutrophils 50 (36.0-66.0) % Band Neutrophils 29 H (0.0-2.0) % Lymphocytes (Manual) 3 L (24-44) % Monocytes (Manual) 3 (0.0-12.0) % Eosinophils (Manual) 1 (0.00-3.0) % Metamyelocytes 12 % Atypical Lymphocytes 2 % Toxic Granulation Dohle Bodies 1+ Platelet Estimate NORMAL (NORMAL) RBC Morphology ABNORMAL Poikilocytosis 1+ Anisocytosis Acanthocytes (Spur) 1+ PT (9.4-12.5) SECONDS INR (0.8-3.0) Sodium (137-145) mmol/L Potassium (3.5-5.1) mmol/L Chloride (98-107) mmol/L Carbon Dioxide (22-30) mmol/L Anion Gap (5-15) MEQ/L BUN (7-17) mg/dL Creatinine (0.52-1.04) mg/dL Estimated GFR ML/MIN Glucose (74-106) mg/dL POC Glucometer 76 (74 to 106) mg/dL Hemoglobin A1c 5.82 (4.5-6.0) % Calcium (8.4-10.2) mg/dL Total Bilirubin (0.2-1.3) mg/dL AST (14-36) U/L ALT (0-35) U/L Alkaline Phosphatase (38-126) U/L NT-Pro-B Natriuret Pep (0-1800) pg/mL Serum Total Protein (6.3-8.2) g/dL Albumin (3.5-5.0) g/dL 09/18/21 09/18/21 09/19/21 Range/Units 16:43 22:39 07:36 WBC (4.0-10.5) K/mm3 RBC (4.1-5.4) M/mm3 Hgb (12.0-16.0) gm/dl Hct (35-47) % MCV (78-100) fl MCH (26-32) pg MCHC (32-36) g/dl RDW (11.5-14.0) % Plt Count (150-450) K/mm3 MPV (7.5-11.0) fl Segmented Neutrophils (36.0-66.0) % Band Neutrophils (0.0-2.0) % Lymphocytes (Manual) (24-44) % Monocytes (Manual) (0.0-12.0) % Eosinophils (Manual) (0.00-3.0) % Metamyelocytes % Atypical Lymphocytes % Toxic Granulation Dohle Bodies Platelet Estimate (NORMAL) RBC Morphology Poikilocytosis Anisocytosis Acanthocytes (Spur) PT (9.4-12.5) SECONDS INR (0.8-3.0) Sodium (137-145) mmol/L Potassium (3.5-5.1) mmol/L Chloride (98-107) mmol/L Carbon Dioxide (22-30) mmol/L Anion Gap (5-15) MEQ/L BUN (7-17) mg/dL Creatinine (0.52-1.04) mg/dL Estimated GFR ML/MIN Glucose (74-106) mg/dL POC Glucometer 186 H 164 H 110 H (74 to 106) mg/dL Hemoglobin A1c (4.5-6.0) % Calcium (8.4-10.2) mg/dL Total Bilirubin (0.2-1.3) mg/dL AST (14-36) U/L ALT (0-35) U/L Alkaline Phosphatase (38-126) U/L NT-Pro-B Natriuret Pep (0-1800) pg/mL Serum Total Protein (6.3-8.2) g/dL Albumin (3.5-5.0) g/dL 09/19/21 09/19/21 09/19/21 Range/Units 11:38 11:38 11:38 WBC 5.0 (4.0-10.5) K/mm3 RBC 4.07 L (4.1-5.4) M/mm3 Hgb 12.6 (12.0-16.0) gm/dl Hct 40.2 (35-47) % MCV 98.8 (78-100) fl MCH 31.0 (26-32) pg MCHC 31.3 L (32-36) g/dl RDW 19.3 H (11.5-14.0) % Plt Count 120 L (150-450) K/mm3 MPV 12.0 H (7.5-11.0) fl Segmented Neutrophils 65 (36.0-66.0) % Band Neutrophils 5 H (0.0-2.0) % Lymphocytes (Manual) 13 L (24-44) % Monocytes (Manual) 12 (0.0-12.0) % Eosinophils (Manual) 5 H (0.00-3.0) % Metamyelocytes % Atypical Lymphocytes % Toxic Granulation 1+ Dohle Bodies Platelet Estimate NORMAL (NORMAL) RBC Morphology ABNORMAL Poikilocytosis Anisocytosis 1+ Acanthocytes (Spur) PT 46.9 H (9.4-12.5) SECONDS INR 3.97 H (0.8-3.0) Sodium 131 L (137-145) mmol/L Potassium 3.3 L (3.5-5.1) mmol/L Chloride 105 (98-107) mmol/L Carbon Dioxide 18 L (22-30) mmol/L Anion Gap 11.0 (5-15) MEQ/L BUN 38 H (7-17) mg/dL Creatinine 1.39 H (0.52-1.04) mg/dL Estimated GFR 38.9 ML/MIN Glucose 112 H (74-106) mg/dL POC Glucometer (74 to 106) mg/dL Hemoglobin A1c (4.5-6.0) % Calcium 6.0 L (8.4-10.2) mg/dL Total Bilirubin 0.70 (0.2-1.3) mg/dL AST 46 H (14-36) U/L ALT 108 H (0-35) U/L Alkaline Phosphatase 94 (38-126) U/L NT-Pro-B Natriuret Pep 54919 H (0-1800) pg/mL Serum Total Protein 4.9 L (6.3-8.2) g/dL Albumin 2.4 L (3.5-5.0) g/dL 09/19/21 Range/Units 12:09 WBC (4.0-10.5) K/mm3 RBC (4.1-5.4) M/mm3 Hgb (12.0-16.0) gm/dl Hct (35-47) % MCV (78-100) fl MCH (26-32) pg MCHC (32-36) g/dl RDW (11.5-14.0) % Plt Count (150-450) K/mm3 MPV (7.5-11.0) fl Segmented Neutrophils (36.0-66.0) % Band Neutrophils (0.0-2.0) % Lymphocytes (Manual) (24-44) % Monocytes (Manual) (0.0-12.0) % Eosinophils (Manual) (0.00-3.0) % Metamyelocytes % Atypical Lymphocytes % Toxic Granulation Dohle Bodies Platelet Estimate (NORMAL) RBC Morphology Poikilocytosis Anisocytosis Acanthocytes (Spur) PT (9.4-12.5) SECONDS INR (0.8-3.0) Sodium (137-145) mmol/L Potassium (3.5-5.1) mmol/L Chloride (98-107) mmol/L Carbon Dioxide (22-30) mmol/L Anion Gap (5-15) MEQ/L BUN (7-17) mg/dL Creatinine (0.52-1.04) mg/dL Estimated GFR ML/MIN Glucose (74-106) mg/dL POC Glucometer 126 H (74 to 106) mg/dL Hemoglobin A1c (4.5-6.0) % Calcium (8.4-10.2) mg/dL Total Bilirubin (0.2-1.3) mg/dL AST (14-36) U/L ALT (0-35) U/L Alkaline Phosphatase (38-126) U/L NT-Pro-B Natriuret Pep (0-1800) pg/mL Serum Total Protein (6.3-8.2) g/dL Albumin (3.5-5.0) g/dL Micro Results-Entire Visit: Microbiology 09/17/21 13:02 Urine Culture - Preliminary Catherized GRAM NEGATIVE ID AND SENSITIVITY PENDING 09/17/21 13:17 Blood Culture - Preliminary Blood NO GROWTH TO DATE 09/17/21 12:45 Blood Culture - Preliminary Blood NO GROWTH TO DATE Accuchecks Date 09/18/21 Time 22:00 - Radiology Exams Ordered Rad Exams-Entire Visit: Radiology Procedures Category Date Time Status ABDOMEN AND PELVIS W/0 CONTRAS [CT] Stat Exams 09/17/21 12:52 Completed HEAD WITHOUT CONTRAST [CT] Stat Exams 09/17/21 12:50 Completed - Procedures and Test Procedures and Tests throughout Hospitalization: Therapy Orders & Screens 09/17/21 18:37 EKG REPEAT IN AM Comment: Oxygen Nasal Cannula 2 lpm Comment: Discharge Exam General Appearance: lethargy (EMT here at bedside to transfer patient) Neurologic Exam: oriented x 3 Final Diagnosis/Problem List - Final Discharge Diagnosis/Problem (1) Sepsis associated hypotension Current Visit: Yes Status: Acute Code(s): A41.9 - SEPSIS, UNSPECIFIED ORGANISM; I95.9 - HYPOTENSION, UNSPECIFIED (2) CHF (congestive heart failure) Current Visit: No Status: Chronic Code(s): I50.9 - HEART FAILURE, UNSPECIFIED (3) HTN (hypertension) Current Visit: Yes Status: Chronic Code(s): I10 - ESSENTIAL (PRIMARY) HYPERTENSION (4) Diabetes type 2, uncontrolled Current Visit: Yes Status: Chronic Code(s): E11.65 - TYPE 2 DIABETES MELLITU S WITH HYPERGLYCEMIA (5) Valvular heart disease Current Visit: Yes Status: Chronic (6) Anticoagulant long-term use Current Visit: Yes Status: Chronic Code(s): Z79.01 - INLAYER (CURRENT) USE OF ANTICOAGULANTS - Discharge Disposition: DC TO [facility] Condition: Serious Prescriptions: No Action Warfarin Sodium [Coumadin] 2 mg PO HS Aspirin 81 gm Chew [Baby Aspirin 81 mg Chew] 1 tab PO DAILY Trazodone HCl 50 mg [Desyrel 50 mg] 50 mg PO HS Sertraline HCl 50 mg [Zoloft 50 mg Tablet] 50 mg PO DAILY Potassium Chloride 20 meq PO BID Magnesium Oxide 400 mg [Mag-Ox 400] 400 mg PO DAILY Carvedilol 6.25 mg [Coreg 6.25 MG] 6.25 mg PO BID Calcium Carbonate/Vitamin D3 [Calcium 500 + Vit D 200 Tablet] 1 tab PO BID calcitrioL [Calcitriol] 0.5 mcg PO DAILY Rosuvastatin Calcium [Crestor] 10 mg PO DAILY Furosemide 40 mg [Lasix 40 MG] 40 mg PO DAILY #30 tablet Docusate Sodium 100 mg [Colace 100 MG] 100 mg PO BID Prednisone 10 mg [Deltasone 10 mg] 1 tablet PO DAILY Ferrous Sulfate [Iron] 325 mg PO DAILY Spironolactone 25 mg [Aldactone 25 MG] 25 mg PO DAILY Losartan Potassium 50 mg [Cozaar 50 MG] 50 mg PO DAILY Empagliflozin [Jardiance] 1 tab PO DAILY Furosemide 40 mg [Lasix 40 MG] 40 mg PO BID Levothyroxine Sodium 25 Mcg [Synthroid 25 Mcg] 175 mcg PO DAILY Follow up with: INDER AUGUSTINE DO [Primary Care Provider] -
[2021-09-19 14:23] VITALS: BP 108/51; PULSE 91; O2SAT 97
[2021-09-19] MEDS ORDERED: Lidoderm Patch 5% TOP SCH (20:00)
== END 2021-09-19 14:09 | disposition short-term general hospital (02) | DRG 872 ==
LOC: ED 12:34 → ICU 18:10
PROVIDERS: ADMIT Family Medicine; ATTEND Family Medicine
DX: A41.9 Sepsis, unspecified organism (principal); N17.9 Acute kidney failure, unspecified; I11.0 Hypertensive heart disease with heart failure; E11.65 Type 2 diabetes mellitus with hyperglycemia; I25.10 Atherosclerotic heart disease of native coronary artery without angina pectoris; R41.82 Altered mental status, unspecified; R77.8 Other specified abnormalities of plasma proteins; I95.9 Hypotension, unspecified; Z79.899 Other long term (current) drug therapy; Z79.01 Long term (current) use of anticoagulants; Z20.828 Contact with and (suspected) exposure to other viral communicable diseases
CPT/HCPCS: 0241U; 36000; 36415; 36600; 51702; 70450; 74176; 80053; 81001; 82140; 82150; 82375; 82803; 82947; 83036; 83605; 83690; 83880; 84145; 84436; 84443; 84484; 85025; 85610; 87040; 87077; 87086; 87186; 87493; 93005; 93041; 94760; 94762; 96360; 96365; 99285; 99291; G0328; 82274; J2405; A9270-GY